=== PATIENT | female | born 1960 | race Caucasian/White ===

== ENCOUNTER → 2019-05-24 13:33 | Outpatient (CLI) | payer MEDICARE, SELFPAY ==
[2019-05-24 14:46] LABS: Chloride 106 mmol/L (98-107); Sodium 141 mmol/L (136-145)
[2019-05-24 14:47] LABS: Potassium 4.4 mmoL/L (3.5-5.1)
[2019-05-24 14:49] LABS: Alanine Aminotransferase 20 U/L (12-78); Alkaline Phosphatase 60 U/L (38-126); Anion Gap 12.4 mEq/L (5-15); Aspartate Amino Transferase 31 U/L (14-36); Bilirubin,Total 0.3 mg/dl (0.2-1.3); Blood Urea Nitrogen 13 mg/dl (7-17); Carbon Dioxide 27 mmol/L (22.0-30.0); Estimated Glomerular Filt Rate 73 ml/min (>60); GFR (African American) 89 ML/MIN (>60)
[2019-05-24 14:50] LABS: Albumin Level 4.2 g/dl (3.5-5.0); Albumin/Globulin Ratio 1.6 (1.1-1.8); Calcium 9.4 mg/dl (8.4-10.2); Chol/HDL Ratio 2.5 (1-3.5); Cholesterol 186 mg/dl (140-200); Globulin 2.6 g/dL (1.3-3.2); Glucose 93 mg/dl (74-100); HDL Cholesterol 74 mg/dl (40-60); Total Protein,Serum 6.8 g/dl (6.3-8.2); Triglycerides 63 mg/dl (30-150); VLDL Cholesterol 13 mg/dL (0-40)
[2019-05-24 15:01] LABS: Direct LDL Cholesterol 86.65 mg/dL (100-129)
[2019-05-24 15:09] LABS: T4 (Thyroxine) 10.4 ug/dl (5.53-11.0)
[2019-05-24 15:20] LABS: Thyroid Stimulating Hormone 2.47 uIU/mL (0.465-4.68)
[2019-05-24 15:53] LABS: Basophils % 0.5 % (0.1-2.0); Eosinophils # 0.1 K/mm3 (0.0-0.4); Eosinophils % 1.4 % (0.1-12.0); Hematocrit 40.7 % (37.0-47.0); Hemoglobin 13.2 g/dL (12.2-16.2); Lymphocytes # 1.2 K/mm3 (0.7-4.5); Lymphocytes % 24.9 % (10-50); Mean Corpuscular HGB Conc 32.4 g/dL (31.8-35.4); Mean Corpuscular Hemoglobin 30.5 pg (27.0-31.2); Mean Corpuscular Volume 94.2 fl (81-99); Mean Platelet Volume 8.5 fl (7.4-10.4); Monocytes # 0.3 K/mm3 (0.1-1.0); Monocytes % 5.1 % (1.7-9.3); Neutrophils # 3.4 K/mm3 (1.8-7.8); Neutrophils % 68.1 % (37.0-80.0); Platelet Count 238 K/mm3 (142-424); Red Blood Count 4.32 M/mm3 (4.20-5.40); White Blood Count 4.9 K/mm3 (4.8-10.8)
== END ==
PROVIDERS: Visit Provider Nurse Practitioner Family
DX: I10 Essential (primary) hypertension (principal); E78.5 Hyperlipidemia, unspecified; E55.9 Vitamin D deficiency, unspecified
CPT/HCPCS: 80053; 80061; 82652; 84436; 84443; 85025

== ENCOUNTER 2019-05-30 07:29 | Outpatient (RCR) | payer MEDICAID, SELFPAY ==
--- NOTE | 2019-05-30 08:37 | HMH.PTOPEV ---
PT Outpatient Evaluation Rehab PT Outpatient Evaluation Start: 05/30/19 08:05 Freq: Status: Active Protocol: Document 05/30/19 08:05 VALERIAOG (Rec: 05/30/19 08:37 LETY [id number]) Electronically Signed By Rhett Bates, PT 05/30/19 08:05 Outpatient Therapy Subjective History Subjective History This is the initial Physical Therapy evaluation fro Lulu Sahu. Pt reports to PT for c /o pain in thoracic to Lumbar area. Pt reports back pain on and off for years but states pain increased to chronic and constant ~ 5 years ago w/ insidious onset. Pt Chief Complaint Pain Symptom Type Ache Symptoms Relieved By Brace/Support Symptoms Aggravated By Sitting,Standing,Bending/ Stooping,Physical Activity, Walking Current Functional Limitations Housework,Standing,Recreation Activity,Walking Symptom Description Constant but Variable Level of pain today (0-10) 8 Pain scale - at its best (0-10) 9 Pain scale - at its worst (0-10) 9 Lumbopelvic Eval Palapation tenderness bilateral thoracic spinal tenderness Yes lumbar spinal tenderness Yes paraspinal tenderness Yes Lumbar/Sacral Palpation Overall Comment hypersensitivity to LT Range of Motion Lumbar Spine Active Flexion Range of 45 Motion (degrees) Lumbar Spine Active Extension Range of 10 Motion (degrees) Left Lumbar Spine Lateral Flexion Active 15 Range of Motion (degrees) Right Lumbar Spine Lateral Flexion 15 Active Range of Motion (degrees) Lumbar Spine ROM Limitations Muscle Tone DTR Rt Patellar 2+ Lt Patellar 2+ Special Tests Lumbar Spine Screen Positive Forward Bending Test- Standing Positive Left,Positive Right Sciatic Nerve Tension Test Negative Left,Negative Right Reverse Sciatic Nerve Tension Test Negative Left,Negative Right Hip 90-90 Straight Leg Raise Test Negative Left,Negative Right Unilateral Straight Leg Raise (Lasegue) Negative Left,Negative Right Test Bilateral Straight Leg Raise Test Negative Crossed Straight Leg Raise Test Negative Left,Negative Right Outpatient Therapy Assessment Impairments Problems/Impairmments Palpation Tenderness,Impaired Range of Motion,Impaired Walking,Impaired Standing, Impaired Sitting,Impaired Shower/Bathing,Impaired
== END 2019-05-30 07:35 | disposition home or self-care (01) ==
LOC: PT 07:29
PROVIDERS: PCP Nurse Practitioner Family; Visit Provider Nurse Practitioner Family
DX: M54.5 Low back pain (principal); M54.6 Pain in thoracic spine
CPT/HCPCS: 97110; 97163

== ENCOUNTER → 2019-08-01 06:39 | Outpatient (CLI) | payer MEDICAID, SELFPAY ==
--- NOTE | 2019-08-01 06:41 | CA_ITS ---
APPROVED REPORT EXAM: Comprehensive 2D, Doppler, and color-flow Echocardiogram Water And Fire Technician: Donna Douglas RDCS Ht: 5 ft 3 in Wt: 211lbs BSA: 1.98 BP: 134/77 mmHg Indications: CAD,SUBSATNCE ABUSE HISTORY,H/O CVA,HTN,HLP 2D Dimensions LVOT 2.20 cm (M/F) 1.5-2.5 M-Mode Dimensions RVDd 1.68 cm (0.9-2.6) LVDd 4.90 cm (3.5-5.7) LVDs 2.79 cm (3.5-5.7) IVSd 0.82 cm (0.6-1.1) PWd 0.86 cm (0.6-1.1) EF (Teich) 74.00% FS 43.10% EDV (Teich) 112.80 mL ESV (Teich) 29.30 mL LV Diastology E/A Ratio 0.88 Mitral Valve MV A Velocity 76.00 (40-130 cm/s) Left Ventricle Left atrium is mildly enlarged, left ventricle is normal size, mild concentric left ventricular hypertrophy, visually estimated ejection fraction 55% with no regional wall motion abnormality, diastolic parameters are inconclusive. Right Ventricle Right atrium and right ventricular normal size and contractility. Aortic Valve Aortic valve is minimally thickened and fibrosed, there is no aortic stenosis aortic insufficiency. Mitral Valve Mitral valve is grossly normal, there is mild mitral regurgitation. Tricuspid Valve Tricuspid valve is grossly normal, there is mild tricuspid regurgitation, tricuspid regurgitation jet velocity is inadequate for calculation of the right ventricular systolic pressure. Pulmonic Valve Pulmonic valve is poorly visualized. Great Vessels Aortic root is normal size. Conclusion 1. Mildly enlarged left atrium, normal left ventricular size, visually estimated ejection fraction 55% with no regional wall motion abnormality, diastolic parameters are inconclusive. 2. Mild mitral and tricuspid regurgitation. 3. No significant pericardial effusion noted. Electronically signed by : Matt Zurita, 08/01/2019 19:51:20
--- NOTE | 2019-08-01 06:41 | NM_ITS ---
APPROVED REPORT Exam: Nuclear Stress Test Indication: chest pain..short of breath Patient Location: Outpatient Stress Tech: Odilia Mcallister ACOSTA Tech:Nandini Brewer HERMILA RT(R)(N) Ht: 5 ft 4 in Wt: 215 lbs Bra Size: 3x HR: 64 bpm BP: 140/53 mmHg BSA: 2.02 m2 BMI: 36.9 History: chest pain..short of breath Procedure: Patient received a 0.4 mg of intravenous Lexiscan, resting heart rate 64 bpm, resting blood pressure 140/53 mmHg, with Lexiscan maximum heart rate achived was 103 bpm which is Less than 85 % of the maximum predicted heart rate and blood pressure was 125/54 mmHg. With Lexiscan, patient denied any complaint of chest pain. Electrocardiogram Resting electrocardiogram shows sinus rhythm, with Lexiscan there is less than 1.[address] segment depression noted from the baseline EKG. The EKG portion of the Lexiscan Myoview is nondiagnostic. Cardiac Stress and Resting SPECT Images: Cardiac Stress and Resting SPECT images were obtained using technetium 99m Myoview 30.5 mCi stress and 10.84 mCi at rest. Gated SPECT for analysis of segmental wall motion and calculation of the ejection fraction also done. Cardiac stress and resting SPECT images show uniform myocardial activity without segmental perfusion abnormality, computer derived ejection fraction is 61% with no regional wall motion abnormality, right ventricle is normal size and contractility. Conclusion: 1. The EKG portion of the Lexiscan Myoview is nondiagnostic. 2. No scintigraphic evidence of reversible ischemia seen, computer derived ejection fraction is 61% with no regional wall motion abnormality, right ventricle is normal size and contractility 3. Normal Lexiscan Myoview study. Electronically signed by : Matt Zurita, 08/01/2019 20:28:49
--- NOTE | 2019-08-01 06:41 | CA_ITS ---
APPROVED REPORT Exam: Pharmacologic Technologist: Odilia Mcallister Ht: 5 ft 4 in Wt: 215 lbs BSA: 2.02 m2 HR: 64 bpm BP: 140/53 mmHg Indications: Dyspnea Medical History Medications: Atenolol,,,,, Vitamin D3,,,,, Atorvastatin,,,,, HCTZ,,,,, Citalopram,,,,, CloPIdogrel,,,,, Famotidine,,,,, PaROXETINE,,,,, DOcusate,,,,, Levalbuterol,,,,, Lidocaine patch,,,,, Stress Test Details Test: LEXISCAN HR Resting HR: 79 bpm Max Heart Rate (APMHR): 161 bpm Max HR Achieved: 117 bpm Target HR (85% APMHR): 136 bpm % of APMHR: 72 Recovery HR: 84 bpm BP Resting BP: 140.0/53.0 mmHg Max BP: 140.0/53.0 mmHg Recovery BP: 133.0/57.0 mmHg ECG Clinical Exercise duration: 04:01 min Highest Stage Achieved: Stress ECG Conclusion Resting ECG: Sinus rhythm Lexiscan portion completed. Patient complained of being nauseous during peak infusion. Symptoms: Nauseous feeling during peak infusion. Resolved in recovery. No chest pain. No shortness of breath. Arrhythmias/Ectopy: No ectopy. ST-T Changes: Less than 1.[address] depression. Conclusion: Images to follow. Test Summary REST . . . . . . . Resting REST 07:35 . . 79 . 140/ 53 . . Stage 1 . . . . . . . Myoview Injected Stage 1 01:00 . . 100 . . . . Stage 2 01:00 . . 106 . . . . Stage 3 01:00 . . 102 . 125/ 54 . . Stage 4 01:00 . . 91 . 120/ 69 . . Stage 4 01:01 . . 91 . 120/ 69 . Stop exercise at 04:01 RECOVERY 01:00 . . 96 . 125/ 77 . . RECOVERY 02:00 . . 92 . 125/ 77 . . RECOVERY 03:00 . . 91 . 118/ 68 . . RECOVERY 04:00 . . 86 . 118/ 68 . . RECOVERY 04:24 . . 85 . 133/ 57 . . Electronically signed by : Matt Zurita, 08/01/2019 20:26:36
--- NOTE | 2019-08-01 06:41 | XR_ITS ---
PROCEDURE: XR CHEST 2V CLINICAL HISTORY: chest pain COMPARISON: CXR CHEST(2 VIEWS-NOT PORTABLE) from 08/26/2015 [facility] PERF SPECT REST STR from 08/01/2019 FINDINGS: The cardiomediastinal silhouette and pulmonary vascularity are within normal limits. There is a small hiatal hernia. There is evidence of old granulomatous disease. Mild degenerative changes of the thoracic spine. IMPRESSION: Small hiatal hernia. No acute finding Dictated by: Raman Silva MD 08/01/2019 13:55 Electronically signed by Raman Silva MD in [facility] 08/01/2019 13:55
--- NOTE | 2019-08-01 13:14 | HMH.ITSHM ---
Current Home Medications as stated by this patient Lulu Sahu or fundraising sale representative. [] paroxetine lisinopril hctz famoidine clopidogrel atenolol
== END ==
PROVIDERS: PCP Nurse Practitioner Family; Visit Provider Physician Assistant
DX: E78.5 Hyperlipidemia, unspecified (principal); F17.200 Nicotine dependence, unspecified, uncomplicated; F19.10 Other psychoactive substance abuse, uncomplicated; I10 Essential (primary) hypertension; I25.118 Atherosclerotic heart disease of native coronary artery with other forms of angina pectoris; M51.37 Other intervertebral disc degeneration, lumbosacral region; R06.00 Dyspnea, unspecified; R07.89 Other chest pain; Z95.5 Presence of coronary angioplasty implant and graft
CPT/HCPCS: 71046; 78452; 93017; 93306; A9502; J2785

== ENCOUNTER → 2019-08-16 13:26 | Outpatient (CLI) | payer MEDICAID, SELFPAY ==
[2019-08-16 14:51] LABS: Anion Gap 10.4 mEq/L (5-15); Blood Urea Nitrogen 15 mg/dl (7-17); Calcium 9.6 mg/dl (8.4-10.2); Carbon Dioxide 30 mmol/L (22.0-30.0); Chloride 99 mmol/L (98-107); Estimated Glomerular Filt Rate 86 ml/min (>60); GFR (African American) 104 ML/MIN (>60); Glucose 93 mg/dl (74-100); Potassium 4.4 mmoL/L (3.5-5.1); Sodium 135 mmol/L (136-145)
== END ==
PROVIDERS: Visit Provider Internal Medicine Cardiovascular Disease
DX: E78.5 Hyperlipidemia, unspecified (principal); F17.200 Nicotine dependence, unspecified, uncomplicated; F19.10 Other psychoactive substance abuse, uncomplicated; I10 Essential (primary) hypertension; I25.10 Atherosclerotic heart disease of native coronary artery without angina pectoris; R06.00 Dyspnea, unspecified; R07.9 Chest pain, unspecified; Z95.5 Presence of coronary angioplasty implant and graft
CPT/HCPCS: 36415; 80048

== ENCOUNTER 2019-08-18 08:29 | Day surgery (SDC) | payer MEDICAID, SELFPAY ==
[2019-08-18] VITALS (11 sets, daily range): BP systolic 103–163; BP diastolic 66–101; PULSE 54–72; RESP 16–18; O2SAT 93–98; BMI 37.5
[2019-08-18 09:52] LABS: Chloride 104 mmol/L (98-107); Potassium 3.8 mmoL/L (3.5-5.1); Sodium 138 mmol/L (136-145)
[2019-08-18 09:53] LABS: Basophils % 0.5 % (0.1-2.0); Eosinophils # 0.1 K/mm3 (0.0-0.4); Eosinophils % 1.3 % (0.1-12.0); Hematocrit 37.3 % (37.0-47.0); Hemoglobin 12.4 g/dL (12.2-16.2); Lymphocytes # 1.4 K/mm3 (0.7-4.5); Lymphocytes % 30.5 % (10-50); Mean Corpuscular HGB Conc 33.3 g/dL (31.8-35.4); Mean Corpuscular Hemoglobin 30.4 pg (27.0-31.2); Mean Corpuscular Volume 91.2 fl (81-99); Mean Platelet Volume 6.9 fl (7.4-10.4); Monocytes # 0.3 K/mm3 (0.1-1.0); Monocytes % 6.9 % (1.7-9.3); Neutrophils # 2.7 K/mm3 (1.8-7.8); Neutrophils % 60.8 % (37.0-80.0); Platelet Count 181 K/mm3 (142-424); Red Blood Count 4.09 M/mm3 (4.20-5.40); Red Cell Distribution Width 12.6 % (11.5-17.5); White Blood Count 4.5 K/mm3 (4.8-10.8)
[2019-08-18 09:55] LABS: Anion Gap 6.8 mEq/L (5-15); Blood Urea Nitrogen 18 mg/dl (7-17); Calcium 8.7 mg/dl (8.4-10.2); Carbon Dioxide 31 mmol/L (22.0-30.0); Creatinine Clearance Estimated 102 mL/min (50-200); Estimated Glomerular Filt Rate 64 ml/min (>60); GFR (African American) 78 ML/MIN (>60); Glucose 93 mg/dl (74-100)
--- NOTE | 2019-08-18 12:00 | IR_ITS ---
APPROVED REPORT PROCEDURES Left heart catheterization Left ventriculogram Selective coronary angiogram INDICATION Known coronary artery disease, Recalcitrant angina pectoris SCAI INDICATION Recalcitrant angina pectoris Informed consent was obtained prior to the procedure. COMPLICATIONS None Estimated Blood Loss: less than 10ml TECHNIQUE One percent lidocaine used to anesthetize the right anterior aspect of the wrist. The right radial artery was accessed via the Seldinger technique. A 6 [place] sheath was placed in the right radial artery. 2.5 mg of verapamil, 800 mcg of nitroglycerin, 1mg Lidocaine and 5000 U Heparin were given through the arterial sheath. The ultra catheter was also used to perform left heart catheterization, left ventriculogram and selective coronary angiogram. At the end of the procedure the sheath was removed good hemostasis was achieved using Traclet band, patient was transferred to the postop holding area in stable condition. ANGIOGRAPHIC RESULTS The left main artery Normal The left anterior descending artery Is proximally normal and has 10% stenoses through the highly tortuous mid LAD segment The circumflex artery Dominant tortuous and normal The right coronary artery Nondominant normal The WU ventriculogram reveals Normal 65% The left ventricular end-diastolic pressure 10 mmHg IMPRESSION Widely patent tortuous coronary arteries with [id number] mild coronary artery disease Normal ejection fraction Normal left ventricular end-diastolic pressure PLAN 1. Medical management Electronically signed by : Lawson Jain, 08/18/2019 10:47:36
== END 2019-08-18 13:43 | disposition home or self-care (01) ==
LOC: CATHLAB 08:31
PROVIDERS: PCP Nurse Practitioner Family; Visit Provider Internal Medicine
DX: E78.5 Hyperlipidemia, unspecified (principal); I10 Essential (primary) hypertension; R06.00 Dyspnea, unspecified; Z95.5 Presence of coronary angioplasty implant and graft; I25.110 Atherosclerotic heart disease of native coronary artery with unstable angina pectoris; Z88.0 Allergy status to penicillin; Z72.0 Tobacco use; Z79.51 Long term (current) use of inhaled steroids; Z79.899 Other long term (current) drug therapy
CPT/HCPCS: 80048; 85025; 93458; 99152; C1769; J1644; Q9967

== ENCOUNTER 2019-09-14 16:00 | Outpatient (RCR) | payer MEDICARE, MEDICAID, SELFPAY ==
--- NOTE | 2019-09-07 17:35 | HMH.PTOPEV ---
PT Outpatient Evaluation Rehab PT Outpatient Evaluation Start: 09/07/19 17:19 Freq: Status: Active Protocol: Document 09/07/19 17:19 CIRA (Rec: 09/07/19 17:35 CIRA [id number]) Electronically Signed By Ron Gill, PT 09/07/19 17:19 Outpatient Therapy Subjective History Subjective History Patient is a 58 year old female presenting to outpatient PT with reports of LLE weakness resulting in approx 3-4 falls over the past 6 months. Pt reports that she had a TIA and LLE weakness /giving out has progressively gotten worse, though she had weakness and balance issues before. Pt has no complaints of pain upon evaluation. Comorbidities include lumbar DDD, HTN, HL and hx of gallstones. Chief Complaint Gives out/Unstable Symptom Type Other Symptoms Relieved By Rest/Positioning Symptoms Aggravated By Standing,Bending/Stooping, Physical Activity,Walking Prior Functional Limitations Standing,Squatting,Walking, Stairs,Balance Current Functional Limitations Standing,Squatting,Walking, Stairs,Balance Balance Eval Subjective Hx of Complaint Comment My left leg always gives out on me and makes me fall. Prior Functional Limitations Prior Functional Pound Level All standing and ambulatory activities. Current Functional Limitations Comment All standing and ambulatory activities. Hx of Falls Hx Falls Yes Number in last 6 months 4 Gait/Posture Asssessment General Gait Observation No Deviations/Normal Assistive Devices None / NA Level of Transfer Assist Independent Hip Observation in Gait Swing No Deviation Hip Observation in Gait Stance No Deviation Ankle/Foot Observation in Gait Swing No Deviation Ankle/Foot Observation in Gait Stance No Deviation Body Alignment Posture Thoracic Kyphosis Timed Up and Go Test 1. Is the Timed Up and Go test result > yes or = to 12 seconds? [place] Feet Together/Eyes open/Stable Surface pass Feet Together/Eyes Closed/Stable Surface fail Feet Together/Eyes open/Unstable Surface pass Feet Together/Eyes Closed/Unstable fail Surface Tinetti Sitting Balance Sitting Balance Steady, safe
== END 2019-09-14 16:05 | disposition home or self-care (01) ==
LOC: PT 16:00
PROVIDERS: PCP Nurse Practitioner Family; Visit Provider Nurse Practitioner Family
DX: R29.898 Other symptoms and signs involving the musculoskeletal system (principal)
CPT/HCPCS: 97163

== ENCOUNTER → 2019-11-16 14:14 | Outpatient (CLI) | payer MEDICARE, BC, SELFPAY ==
[2019-11-16 15:45] LABS: Coronavirus 19 IgG Antibody Negative (Negative); Coronavirus 19 IgM Antibody Negative (Negative)
== END ==
PROVIDERS: Visit Provider Surgery
DX: Z01.89 Encounter for other specified special examinations (principal)
CPT/HCPCS: 36415; 86328

== ENCOUNTER → 2020-01-24 13:27 | Outpatient (CLI) | payer MEDICARE, BC, SELFPAY ==
[2020-01-24 15:42] LABS: Coronavirus 19 IgG Antibody Negative (Negative); Coronavirus 19 IgM Antibody Negative (Negative)
== END ==
PROVIDERS: Visit Provider Surgery
DX: Z01.818 Encounter for other preprocedural examination (principal); L72.3 Sebaceous cyst
CPT/HCPCS: 36415; 86328

== ENCOUNTER 2020-01-26 09:45 | Day surgery (SDC) | payer MEDICARE, BC, SELFPAY ==
[2020-01-24 13:22] VITALS: BMI 38.6
[2020-01-26 12:58] VITALS: BP 134/88; PULSE 80; RESP 20; TEMP 36.7; O2SAT 100
--- NOTE | 2020-01-26 14:34 | HMH.OPNOTE ---
Date of procedure: 01/26/20 Pre-op Diagnosis:: Right upper back sebaceous cyst (1.5 cm) Post-op Diagnosis:: Same Procedure performed:: Excision of 1.5 cm right upper back sebaceous cyst Surgeon:: Josiah May MD Anesthesia: local Estimated blood loss (mL): 5 Operative findings:: Cyst excised in toto and passed off for pathologic evaluation Operative note:: After informed consent was obtained the patient was taken to the procedure room. She was maintained in a seated position. Her right upper back was prepped and draped in a sterile fashion. After infiltration local anesthetic an elliptical incision was made around the lesion. The deep subcutaneous tissue was sharply excised. The lesion was excised in toto and passed off for pathologic evaluation. Electrocautery was utilized to achieve hemostasis. The skin was then reapproximated with 3-0 nylon. Dressings were applied and the patient was discharged in stable condition. Condition: stable Disposition: no change Specimens:: Right upper back cyst Complications:: No immediate
[2020-01-26 14:36] VITALS: BP 131/86; PULSE 83; RESP 18; TEMP 36.1; O2SAT 97
--- NOTE | 2020-01-26 15:40 | SUR.OPER ---
Count-before and after procedure as verified by [facility] and Minnie Yeager RN 5 laps 1 bovie 1 blade 1 suture 1 hypo count complete and correct, notified at [id number]
--- NOTE | 2020-01-26 15:45 | SUR.OPER ---
dressing: antibiotic ointment, folded 4x4s and tegaderm
== END 2020-01-26 14:59 | disposition home or self-care (01) ==
PROVIDERS: PCP Nurse Practitioner Family; Visit Provider Surgery
PROC: (CPT 21920; principal; 2020-01-26 11:30)
DX: I25.10 Atherosclerotic heart disease of native coronary artery without angina pectoris (principal); I82.409 Acute embolism and thrombosis of unspecified deep veins of unspecified lower extremity; Z86.73 Personal history of transient ischemic attack (TIA), and cerebral infarction without residual deficits; E78.5 Hyperlipidemia, unspecified; I10 Essential (primary) hypertension; I25.2 Old myocardial infarction; Z79.899 Other long term (current) drug therapy; Z72.0 Tobacco use; F12.90 Cannabis use, unspecified, uncomplicated; Z82.49 Family history of ischemic heart disease and other diseases of the circulatory system
CPT/HCPCS: 21920; 88304

== ENCOUNTER 2020-09-27 18:15 | Emergency (ER) | payer MEDICARE, BC, SELFPAY ==
[2020-09-27 18:16] VITALS: BP 141/89; PULSE 81; RESP 16; TEMP 36.2; O2SAT 98; BMI 38.9
--- NOTE | 2020-09-27 18:39 | HMH.EDGENADL ---
ED Disposition Clinical Impression: Drug overdose Qualifiers: Encounter type: initial encounter Injury intent: accidental or unintentional Qualified Code(s): T50.901A - Poisoning by unspecified drugs, medicaments and biological substances, accidental (unintentional), initial encounter Disposition: Still a Patient Condition on Discharge: Good Referrals: Lewis Corral APRN [Primary Care Provider] - Time of Disposition: 19:00 - Critical Care Critical Care Time: No Attestation: On 09/27/20, the high probability of a clinically significant, sudden or life threatening deterioration of the following system(s) required my full and direct attention, intervention and personal management. The time I documented below is in addition to time spent performing reported procedures but includes the following listed in this critical care notation. Medical Decision Making - Medical Records Medical records reviewed: Yes: I reviewed the patient's medical records. - Jean Paul Inquiry Pt receiving controlled substance: No Vital Signs: 09/27/20 18:16 Temperature 97.1 F L Temperature Source Oral Pulse Rate [Radial] 81 Respiratory Rate 16 Blood Pressure [Right Radial Artery] 141/89 H Blood Pressure Mean [Right Radial Artery] 106 Blood Pressure Position [Right Radial Artery] Sitting 02 Sat by Pulse Oximetry 98 Oxygen Delivery Method Room Air Orders (Tests/Meds): ED MEDICATIONS Discontinued Medications Generic Name Dose Route Start Last Admin Trade Name Jarad PRN Reason Stop Dose Admin Naloxone HCl 1 mg 09/27/20 19:00 09/27/20 19:06 Naloxone 2mg/2ml Syringe IV 09/27/20 19:01 1 mg ONCE ONE Administration Medical Decision Narrative: Evaluate for overdose. Patient received a total of 6 mg Narcan intranasal prior to arrival. Last dose was roughly 1815. Patient is in no acute distress at this time. She is a little somnolent but able answer questions without difficulty. We will hold off on additional treatment right now. Patient will need to be monitored to ensure no additional overdose occurs. Patient to be signed out to oncoming physician at shift change. General Adult HPI - General Chief complaint: Overdose Stated complaint: overdose Time Seen by Provider: 09/27/20 18:30 Mode of Arrival: EMS Limitations: No Limitations Description of Symptoms (Recalled from ER Triage Doc. by RN): to ed per squad for overdose. pt with hx of drug abuse and has been sober x 5 years. snorted heroin today a little bit pt states she has been under alot of stress lately. pt was found by family, she was given 4 mg nasal. squad states pt was still drowsey when they got to scene and gave another 2 mg nasal. pt vomiting since given narcan. pt admits to ed drowsey slow to answer questions. pt oriented x 3. - History of Present Illness HPI narrative: 59yo F presents via EMS after an overdose. Patient received 4 of Narcan prior to EMS arrival and EMS provided additional 2 of Narcan intranasal. Patient had projectile vomiting after receiving the additional 2 of Narcan. She reports using just a little bit of heroin. States she uses drugs quite often. Denies any chest pain or shortness of breath at this time. - Related Data Home Medications Medication Instructions Recorded Confirmed Levalbuterol Tartrate 2 inh INHALATION Q6H 11/15/19 02/08/20 [Levalbuterol Tartrate Hfa] Atorvastatin Calcium [Lipitor 10mg See Rx Instructions .ROUTE .COMPLEX 01/26/20 02/08/20 Tab] Clopidogrel Bisulfate [Plavix] See Rx Instructions .ROUTE .COMPLEX 01/26/20 02/08/20 Docusate Sodium See Rx Instructions .ROUTE .COMPLEX 01/26/20 02/08/20 atenoloL [Atenolol 50mg Tab] See Rx Instructions .ROUTE .COMPLEX 01/26/20 02/08/20 hydroCHLOROthiazide See Rx Instructions .ROUTE .COMPLEX 01/26/20 02/08/20 [Hydrochlorothiazide 12.5mg Tab] lisinopriL [Lisinopril 5mg See Rx Instructions .ROUTE .COMPLEX 01/26/20 02/08/20 Tablet] Previous Rx's Medi
--- NOTE | 2020-09-27 20:16 | XR_ITS ---
PROCEDURE INFORMATION: Exam: XR Chest Exam date and time: 09/27/2020 8:16 PM Age: 59 years old Clinical indication: Patient HX: No chest complaints, overdose; Additional info: Od TECHNIQUE: Imaging protocol: XR of the chest. Portable AP exam 8:30 p.m. Views: 1 view. COMPARISON: CR XR CHEST 2V 08/01/2019 9:57 AM FINDINGS: Lungs: No acute pulmonary findings. No pulmonary consolidation. Lung volumes within normal limits. Pleural spaces: Unremarkable. No significant pleural effusion. No pneumothorax. Heart/Mediastinum: Cardiac silhouette appears borderline enlarged, more prominent compared with 2019, but is accentuated by portable AP technique. Small hiatal hernia appears slightly more prominent compared with the prior exam from 08/01/2019. Bones/joints: Chronic spinal degenerative changes, bilateral acromioclavicular arthritis. Other findings: Overlying school lunch monitor electrodes. IMPRESSION: 1. No acute findings. 2. The patient's hiatal hernia appears slightly enlarged compared with 2020. 3. Borderline cardiomegaly. 4. No pulmonary consolidation.
[2020-09-27 21:30] VITALS: BP 151/86; PULSE 73; RESP 14; O2SAT 97
[2020-09-27 21:55] LABS: Microscopic, Urine URINE MICROSCOPIC (MICROSCOPIC)
[2020-09-27 22:11] LABS: Appearance,Urine CLEAR (Clear); Bilirubin,Urine Negative (Negative); Blood, Urine 2+ (Negative); Color,Urine YELLOW (Yellow); Glucose,Urine (UA) Negative (Negative); Ketones,Urine Negative (Negative); Leukocyte Esterase,Urine 2+ (Negative); Nitrate,Urine Negative (Negative); Protein,Urine Negative (Negative); Urobilinogen,Urine 0.2 EU/dl (0.2)
[2020-09-27 22:22] LABS: Benzodiazepines Screen,Urine Negative ng/ml (<200)
[2020-09-27 22:23] LABS: Barbiturates Screen,Urine Negative ng/ml (<200)
[2020-09-27 22:24] LABS: Cannabinoid Screen,Urine Negative ng/ml (<50)
[2020-09-27 22:25] LABS: Cocaine Screen,Urine Positive ng/ml (<300); Methadone Screen,Urine Negative ng/ml (<300)
[2020-09-27 22:25] LABS: Basophils % 0.5 % (0.1-2.0); Eosinophils # 0.1 K/mm3 (0.0-0.4); Eosinophils % 0.8 % (0.1-12.0); Hematocrit 39.8 % (37.0-47.0); Hemoglobin 13.5 g/dL (12.2-16.2); Lymphocytes # 0.9 K/mm3 (0.7-4.5); Mean Corpuscular HGB Conc 33.9 g/dL (31.8-35.4); Mean Corpuscular Hemoglobin 30.3 pg (27.0-31.2); Mean Corpuscular Volume 89.1 fl (81-99); Mean Platelet Volume 8.3 fl (7.4-10.4); Monocytes # 0.5 K/mm3 (0.1-1.0); Monocytes % 5.7 % (1.7-9.3); Neutrophils # 6.7 K/mm3 (1.8-7.8); Platelet Count 248 K/mm3 (142-424); Red Blood Count 4.47 M/mm3 (4.20-5.40); Red Cell Distribution Width 13.5 % (11.5-17.5); White Blood Count 8.2 K/mm3 (4.8-10.8)
[2020-09-27 22:26] LABS: Phencyclidine Screen,Urine Negative ng/ml (<25)
[2020-09-27 22:27] LABS: Opiate Screen,Urine Negative ng/ml (<300)
[2020-09-27 22:31] LABS: Chloride 107 mmol/L (98-107); Sodium 141 mmol/L (136-145)
[2020-09-27 22:32] LABS: Bacteria,Urine 3+ /lpf
[2020-09-27 22:33] LABS: Alanine Aminotransferase 18 U/L (12-78); Aspartate Amino Transferase 29 U/L (14-36); Blood Urea Nitrogen 13 mg/dl (7-17); Creatinine Clearance Estimated 105 mL/min (50-200); Estimated Glomerular Filt Rate 64 ml/min (>60); GFR (African American) 77 ML/MIN (>60)
[2020-09-27 22:34] LABS: Albumin Level 4.5 g/dl (3.5-5.0); Albumin/Globulin Ratio 1.5 (1.1-1.8); Alkaline Phosphatase 100 U/L (38-126); Bilirubin,Total 0.5 mg/dl (0.2-1.3); Carbon Dioxide 26 mmol/L (22.0-30.0); Globulin 3.1 g/dL (1.3-3.2); Glucose 124 mg/dl (74-100); Lipase 89 U/L (23-300); Total Protein,Serum 7.6 g/dl (6.3-8.2)
[2020-09-27 22:47] LABS: Troponin I < 0.01 ng/ml (0.00-0.034)
[2020-09-27 23:00] VITALS: BP 121/73; RESP 14
[2020-09-27 23:24] VITALS: BP 121/73; PULSE 72; RESP 17; TEMP 36.7; O2SAT 100
== END 2020-09-27 23:37 | disposition home or self-care (01) ==
PROVIDERS: Emergency Provider Emergency Medicine; PCP Nurse Practitioner Family
DX: T40.1X1A Poisoning by heroin, accidental (unintentional), initial encounter (principal); Y92.019 Unspecified place in single-family (private) house as the place of occurrence of the external cause; I25.2 Old myocardial infarction; I25.10 Atherosclerotic heart disease of native coronary artery without angina pectoris; N30.00 Acute cystitis without hematuria; B96.20 Unspecified Escherichia coli [E. coli] as the cause of diseases classified elsewhere; E78.5 Hyperlipidemia, unspecified; I10 Essential (primary) hypertension; Z86.73 Personal history of transient ischemic attack (TIA), and cerebral infarction without residual deficits; F17.210 Nicotine dependence, cigarettes, uncomplicated
CPT/HCPCS: 96374; 71045; 80053; 80305; 81001; 83690; 84484; 85025; 87086; 87088; 87186; 96375; 96376; 99282; J2310; J2405

== ENCOUNTER → 2020-11-28 14:02 | Outpatient (CLI) | payer MEDICARE, BC, SELFPAY ==
[2020-11-28 14:18] LABS: Basophils % 0.5 % (0.1-2.0); Eosinophils % 0.7 % (0.1-12.0); Hematocrit 41.3 % (37.0-47.0); Hemoglobin 13.4 g/dL (12.2-16.2); Lymphocytes # 1.3 K/mm3 (0.7-4.5); Lymphocytes % 21.2 % (10-50); Mean Corpuscular HGB Conc 32.5 g/dL (31.8-35.4); Mean Corpuscular Hemoglobin 30.7 pg (27.0-31.2); Mean Corpuscular Volume 94.4 fl (81-99); Mean Platelet Volume 8.8 fl (7.4-10.4); Monocytes # 0.3 K/mm3 (0.1-1.0); Monocytes % 4.9 % (1.7-9.3); Neutrophils # 4.4 K/mm3 (1.8-7.8); Neutrophils % 72.7 % (37.0-80.0); Platelet Count 281 K/mm3 (142-424); Red Blood Count 4.38 M/mm3 (4.20-5.40); Red Cell Distribution Width 13.9 % (11.5-17.5); White Blood Count 6.1 K/mm3 (4.8-10.8)
[2020-11-28 14:53] LABS: Amphetamine/Metha Screen,Urine Negative ng/ml (<1000); Barbiturates Screen,Urine Negative ng/ml (<200)
[2020-11-28 14:54] LABS: Benzodiazepines Screen,Urine Negative ng/ml (<200)
[2020-11-28 14:55] LABS: Cannabinoid Screen,Urine Negative ng/ml (<50); Cocaine Screen,Urine Negative ng/ml (<300)
[2020-11-28 14:56] LABS: Methadone Screen,Urine Negative ng/ml (<300)
[2020-11-28 14:57] LABS: Opiate Screen,Urine Negative ng/ml (<300); Phencyclidine Screen,Urine Negative ng/ml (<25)
[2020-11-28 15:19] LABS: Alanine Aminotransferase 16 U/L (12-78); Albumin Level 4.2 g/dl (3.5-5.0); Albumin/Globulin Ratio 1.4 (1.1-1.8); Alkaline Phosphatase 96 U/L (38-126); Aspartate Amino Transferase 33 U/L (14-36); Blood Urea Nitrogen 13 mg/dl (7-17); Calcium 9.4 mg/dl (8.4-10.2); Carbon Dioxide 29 mmol/L (22.0-30.0); Chloride 106 mmol/L (98-107); Chol/HDL Ratio 2.5 (1-3.5); Cholesterol 225 mg/dl (140-200); Estimated Glomerular Filt Rate 85 ml/min (>60); GFR (African American) 103 ML/MIN (>60); Globulin 2.9 g/dL (1.3-3.2); Glucose 86 mg/dl (74-100); HDL Cholesterol 91 mg/dl (40-60); Sodium 142 mmol/L (136-145); Total Protein,Serum 7.1 g/dl (6.3-8.2); Triglycerides 71 mg/dl (30-150); VLDL Cholesterol 14 mg/dL (0-40)
[2020-11-28 15:30] LABS: Direct LDL Cholesterol 105.77 mg/dL (100-129)
[2020-11-28 15:37] LABS: T4 (Thyroxine) 9.1 ug/dl (5.53-11.0)
[2020-11-28 15:50] LABS: Thyroid Stimulating Hormone 4.03 uIU/mL (0.465-4.68)
[2020-11-30 07:12] LABS: Hep A Ab, IgM Negative (Negative); Hep A Ab, Total Negative (Negative); Hep B Core Ab, Total Negative (Negative); Hep B Surface Ab, Qual Non Reactive (.)
== END ==
PROVIDERS: Visit Provider Nurse Practitioner Family
DX: B19.20 Unspecified viral hepatitis C without hepatic coma (principal); R06.00 Dyspnea, unspecified; I20.0 Unstable angina; T50.901A Poisoning by unspecified drugs, medicaments and biological substances, accidental (unintentional), initial encounter; Z11.4 Encounter for screening for human immunodeficiency virus [HIV]
CPT/HCPCS: 80053; 80061; 80305; 84436; 84443; 85025; 86704; 86706; 86708; 87522; 87902

== ENCOUNTER 2020-12-10 23:36 | Inpatient (IN) | payer MEDICARE, BC, SELFPAY ==
[2020-12-10 23:38] VITALS: BP 131/78; PULSE 78; RESP 17; TEMP 36.8; O2SAT 100; BMI 44.2
[2020-12-11] VITALS (10 sets, daily range): BP systolic 99–151; BP diastolic 55–96; PULSE 62–103; RESP 16–20; TEMP 36.6–37.4; O2SAT 95–100; BMI 40.3
--- NOTE | 2020-12-11 00:11 | CT_ITS ---
PROCEDURE INFORMATION: Exam: CT Abdomen And Pelvis With Contrast Exam date and time: 12/11/2020 12:11 AM Age: 60 years old Clinical indication: Abdominal pain; Localized; Left lower quadrant (llq); Prior surgery; Surgery type: Gallbladder TECHNIQUE: Imaging protocol: Computed tomography of the abdomen and pelvis with contrast. Radiation optimization: All CT scans at this facility use at least one of these dose optimization techniques: automated exposure control; mA and/or kV adjustment per patient size (includes targeted exams where dose is matched to clinical indication); or iterative reconstruction. Contrast material: ISOVUE; Contrast volume: 75 ml; Contrast route: IV; COMPARISON: CR XR CHEST PORTABLE 09/27/2020 8:29 PM FINDINGS: Lungs: No mass/infiltrate at either lung base. No pleural effusion. Liver: The liver is normal in size and attenuation. No intrahepatic biliary dilitation. Gallbladder and bile ducts: The gallbladder is surgically absent. No evidence of extrahepatic biliary dilatation. Pancreas: Normal. No ductal dilation. Spleen: Normal. No splenomegaly. Granulomatous calcifications within the spleen are noted. Adrenal glands: Normal. No mass. Kidneys and ureters: Normal. No hydronephrosis. Stomach and bowel: There is focal thickening of the proximal sigmoid colon. Infiltration of fat within the adjacent mesentery is identified. There is a small collection of gas along the mesenteric border of the sigmoid colon which could represent a small abscess. Overall appearance is compatible with diverticulitis. There are additional diverticula noted within the sigmoid colon, descending colon, transverse colon. colon. There is a large hiatal hernia noted above the gastroesophageal junction. Appendix: The appendix is poorly visualized on this examination. Intraperitoneal space: Unremarkable. No free air. No significant fluid collection. Vasculature: Unremarkable. No abdominal aortic aneurysm. Lymph nodes: Unremarkable. No enlarged lymph nodes. Urinary bladder: Unremarkable as visualized. Reproductive: Hysterectomy has been performed. Bones/joints: There are degenerative changes noted within the lumbar spine.No acute fracture. Soft tissues: Unremarkable. IMPRESSION: 1. Findings are compatible with a focus of diverticulitis and probably a small diverticular abscess noted at the junction of the descending colon and sigmoid colon. There is edema present within the adjacent mesentery associated with this process. 2. There is a large hiatal hernia above the gastroesophageal junction. 3. Cholecystectomy and hysterectomy has been performed.
--- NOTE | 2020-12-11 00:23 | HMH.EDNVD ---
ED Disposition Clinical Impression: Diverticulitis, Tobacco dependence syndrome Obesity Qualifiers: Obesity type: due to excess calories Obesity classification: adult class 3 (BMI >= 40) Serious obesity comorbidity presence: with serious comorbidity Body mass index: BMI 40.0-44.9 Qualified Code(s): E66.01 - Morbid (severe) obesity due to excess calories; Z68.41 - Body mass index [BMI] 40.0-44.9, adult UTI (urinary tract infection) Qualifiers: Urinary tract infection type: site unspecified Hematuria presence: without hematuria Qualified Code(s): N39.0 - Urinary tract infection, site not specified Disposition: Admitted As Inpatient Condition on Discharge: Good - Critical Care Critical Care Time: No Attestation: On 12/10/20, the high probability of a clinically significant, sudden or life threatening deterioration of the following system(s) required my full and direct attention, intervention and personal management. The time I documented below is in addition to time spent performing reported procedures but includes the following listed in this critical care notation. Medical Decision Making - Medical Records Medical records reviewed: Yes: I reviewed the patient's medical records. - Jean Paul Inquiry Pt receiving controlled substance: No Vital Signs: 12/10/20 23:38 12/11/20 00:12 12/11/20 00:33 Temperature 98.2 F Temperature Source Oral Pulse Rate 88 67 Pulse Rate [Right Radial] 78 Respiratory Rate 17 20 18 Blood Pressure 127/96 H 135/73 Blood Pressure [Right Arm] 131/78 Blood Pressure Mean 100 92 Blood Pressure Mean [Right Arm] 95 Blood Pressure Source [Right Arm] Automatic Cuff Blood Pressure Position [Right Arm] Supine 02 Sat by Pulse Oximetry 100 98 99 Oxygen Delivery Method Room Air 12/11/20 01:01 12/11/20 01:31 Temperature Temperature Source Pulse Rate 64 65 Pulse Rate [Right Radial] Respiratory Rate 18 18 Blood Pressure 151/76 H 133/70 Blood Pressure [Right Arm] Blood Pressure Mean 99 93 Blood Pressure Mean [Right Arm] Blood Pressure Source [Right Arm] Blood Pressure Position [Right Arm] 02 Sat by Pulse Oximetry 100 99 Oxygen Delivery Method - Lab Data Lab results reviewed: Yes: I reviewed the patient's lab results. Lab Results 12/11/20 00:33: WBC 10.3, RBC 4.73, Hgb 14.5, Hct 44.4, MCV 93.8, MCH 30.7, MCHC 32.8, RDW 12.8, Plt Count 300, MPV 7.2 L, Neut % (Auto) 83.3 H, Lymph % (Auto) 11.0, [place] % (Auto) 3.8, Eos % (Auto) 1.6, Baso % (Auto) 0.3, Neut # (Auto) 8.6 H, Lymph # (Auto) 1.1, [place] # (Auto) 0.4, Eos # (Auto) 0.2, Baso # (Auto) 0.0, ESR 60 H 12/11/20 00:33: Sodium 136, Potassium 3.9, Chloride 100, Carbon Dioxide 27, Anion Gap 12.9, BUN 6 L, Creatinine 0.60, Estimated Creat Clear 49, Estimated GFR 102, Est GFR ( Amer) 123, Glucose 123 H, Calcium 9.3, Total Bilirubin 1.1, AST 42 H, ALT 24, Alkaline Phosphatase 100, C-Reactive Protein 30.9 H, Total Protein 8.3 H, Albumin 4.5, Globulin 3.8 H, Albumin/Globulin Ratio 1.2, Amylase 68, Lipase 108, Procalcitonin 0.050 12/11/20 02:02: Urine Color Yellow, Urine Appearance Clear, Urine pH 6.0, Ur Specific [place] <= 1.005, Urine Protein Negative, Urine Glucose (UA) Negative, Urine Ketones Negative, Urine Blood 2+, Urine Nitrate Positive, Urine Bilirubin Negative, Urine Urobilinogen 0.2, Ur Leukocyte Esterase 1+ A, Urine RBC 3-5, Urine WBC 10-20, Urine Bacteria 3+ 12/11/20 02:13: SARS-CoV-2 (PCR) Not detected, Influenza A Untype (PCR) Not detected, Influenza Type B (PCR) Not detected 12/11/20 03:05: Lactate 0.8 Result diagrams: 12/11/20 00:33 12/11/20 00:33 Orders (Tests/Meds): ED MEDICATIONS Generic Name Dose Route Start Last Admin Trade Name Freq PRN Reason Stop Dose Admin Sodium Chloride 1,000 mls @ 999 mls/hr 12/11/20 00:15 12/11/20 00:46 Sod Chlor 0.9% 1000ml Bag IV 12/11/20 01:15 999 mls/hr .Q1H1M NADIYA Administration Levofloxacin/Dextrose 750 mg in 150 mls @ 100 mls/hr 12/11/20 03:0
[2020-12-11 00:43] LABS: Basophils % 0.3 % (0.1-2.0); Eosinophils # 0.2 K/mm3 (0.0-0.4); Eosinophils % 1.6 % (0.1-12.0); Hematocrit 44.4 % (37.0-47.0); Hemoglobin 14.5 g/dL (12.2-16.2); Lymphocytes # 1.1 K/mm3 (0.7-4.5); Mean Corpuscular HGB Conc 32.8 g/dL (31.8-35.4); Mean Corpuscular Hemoglobin 30.7 pg (27.0-31.2); Mean Corpuscular Volume 93.8 fl (81-99); Mean Platelet Volume 7.2 fl (7.4-10.4); Monocytes # 0.4 K/mm3 (0.1-1.0); Monocytes % 3.8 % (1.7-9.3); Neutrophils # 8.6 K/mm3 (1.8-7.8); Neutrophils % 83.3 % (37.0-80.0); Platelet Count 300 K/mm3 (142-424); Red Blood Count 4.73 M/mm3 (4.20-5.40); Red Cell Distribution Width 12.8 % (11.5-17.5); White Blood Count 10.3 K/mm3 (4.8-10.8)
[2020-12-11 00:50] LABS: Alanine Aminotransferase 24 U/L (12-78); Albumin Level 4.5 g/dl (3.5-5.0); Albumin/Globulin Ratio 1.2 (1.1-1.8); Alkaline Phosphatase 100 U/L (38-126); Aspartate Amino Transferase 42 U/L (14-36); Bilirubin,Total 1.1 mg/dl (0.2-1.3); Chloride 100 mmol/L (98-107); Globulin 3.8 g/dL (1.3-3.2); Lipase 108 U/L (23-300); Potassium 3.9 mmoL/L (3.5-5.1); Sodium 136 mmol/L (136-145); Total Protein,Serum 8.3 g/dl (6.3-8.2)
[2020-12-11 00:53] LABS: Amylase 68 U/L (30-110); Anion Gap 12.9 mEq/L (5-15); Blood Urea Nitrogen 6 mg/dl (7-17); Calcium 9.3 mg/dl (8.4-10.2); Carbon Dioxide 27 mmol/L (22.0-30.0); Creatinine Clearance Estimated 49 mL/min (50-200); Estimated Glomerular Filt Rate 102 ml/min (>60); GFR (African American) 123 ML/MIN (>60); Glucose 123 mg/dl (74-100)
[2020-12-11 00:56] LABS: C-Reactive Protein 30.9 mg/L (0-4)
[2020-12-11 01:25] LABS: Erythrocyte Sedimentation Rate 60 mm/hr (0-30)
[2020-12-11 02:07] LABS: Microscopic, Urine URINE MICROSCOPIC (MICROSCOPIC)
[2020-12-11 02:08] LABS: Appearance,Urine CLEAR (Clear); Bilirubin,Urine Negative (Negative); Blood, Urine 2+ (Negative); Color,Urine YELLOW (Yellow); Glucose,Urine (UA) Negative (Negative); Ketones,Urine Negative (Negative); Leukocyte Esterase,Urine 1+ (Negative); Nitrate,Urine POSITIVE (Negative); Protein,Urine Negative (Negative); Specific Gravity, Urine <= 1.005 (1.005-1.030); Urobilinogen,Urine 0.2 EU/dl (0.2)
[2020-12-11 02:23] LABS: Bacteria,Urine 3+ /lpf
[2020-12-11 03:19] LABS: Coronavirus 19, PCR Not Detected (NotDetected); Influenza A, PCR Not Detected (NotDetected); Influenza B, PCR Not Detected (NotDetected)
[2020-12-11 03:26] LABS: Lactic Acid 0.8 mmol/L (0.7-2.1)
--- NOTE | 2020-12-11 04:21 | PC.NURSE ---
Report called to Carly Gonzalez RN at this time
--- NOTE | 2020-12-11 05:14 | PC.NURSE ---
PT ARRIVED TP FLOOR VIA STRETCHER FROM ED W/STAFF AT [id number]
--- NOTE | 2020-12-11 06:42 | PC.NURSE ---
DR LOCK NOTIFIED OF CONSULT.
--- NOTE | 2020-12-11 06:51 | PC.NURSE ---
Patient IV in LAC infiltrated with NS & IV in RAC was leaking this shift.
--- NOTE | 2020-12-11 07:11 | HMH.PHAINT ---
MEDICATION RECONCILIATION COMPLETE USING SURESCRIPTS AND PREVIOUS OFFICE VISIT
--- NOTE | 2020-12-11 07:21 | P.CONPHA_ITS ---
[facility] Pharmacy VTE Monitoring - Patient Demographics Admission date: 12/11/20 Report Date: 12/11/20 Time: 07:21 Allergies/Adverse Reactions: Patient Allergies penicillin G [PENICILLIN G] Allergy (Unknown, Verified 11/28/20 10:42) NA-NAUSEA/VOMITING Height: 1.6 m Weight: 103.238 kg Patient Problems: Current Active Problems Diverticulitis (Acute) Obesity (Acute) UTI (urinary tract infection) (Acute) Tobacco dependence syndrome (Acute) - VTE Risk Labs: VTE Related Lab Results Hgb 14.5 g/dL (12.2-16.2) 12/11/20 00:33 Hct 44.4 % (37.0-47.0) 12/11/20 00:33 Plt Count 300 K/mm3 (142-424) 12/11/20 00:33 BUN 6 mg/dl (7-17) L 12/11/20 00:33 Creatinine 0.60 mg/dl (0.52-1.04) 12/11/20 00:33 Estimated Creat Clear 49 mL/min (50-200) 12/11/20 00:33 Clinical Trial Participant: No - Prophylaxis VTE Prophylaxis Ordered?: Yes Types of VTE Prophylaxis: TEDS Knee High
[2020-12-11 07:28] LABS: Chloride 105 mmol/L (98-107); Potassium 3.5 mmoL/L (3.5-5.1); Sodium 137 mmol/L (136-145)
[2020-12-11 07:31] LABS: Anion Gap 10.5 mEq/L (5-15); Basophils % 0.2 % (0.1-2.0); Blood Urea Nitrogen 7 mg/dl (7-17); Calcium 8.6 mg/dl (8.4-10.2); Carbon Dioxide 25 mmol/L (22.0-30.0); Creatinine Clearance Estimated 47 mL/min (50-200); Eosinophils # 0.1 K/mm3 (0.0-0.4); Eosinophils % 0.6 % (0.1-12.0); Estimated Glomerular Filt Rate 102 ml/min (>60); GFR (African American) 123 ML/MIN (>60); Glucose 102 mg/dl (74-100); Hematocrit 41.7 % (37.0-47.0); Hemoglobin 13.5 g/dL (12.2-16.2); Lymphocytes # 1.1 K/mm3 (0.7-4.5); Lymphocytes % 13.1 % (10-50); Magnesium 1.6 mg/dl (1.6-2.3); Mean Corpuscular HGB Conc 32.4 g/dL (31.8-35.4); Mean Corpuscular Hemoglobin 30.5 pg (27.0-31.2); Mean Corpuscular Volume 94.4 fl (81-99); Mean Platelet Volume 7.4 fl (7.4-10.4); Monocytes # 0.5 K/mm3 (0.1-1.0); Monocytes % 5.5 % (1.7-9.3); Neutrophils % 80.6 % (37.0-80.0); Platelet Count 244 K/mm3 (142-424); Red Blood Count 4.42 M/mm3 (4.20-5.40); White Blood Count 8.6 K/mm3 (4.8-10.8)
--- NOTE | 2020-12-11 09:10 | HMH.HP ---
*Admission Date: 12/11/20 *Chief complaint: Abdominal pain *History of present illness: 60-year-old female patient presents to the [facility] emergency department with reports of left lower quadrant abdominal pain for the past 2 days with nausea and vomiting, denies diarrhea or dysuria. Denies fever/chills/body aches. Abdomen is tender in the left side of abdomen. She denies any blood in her stool or emesis. General surgery was consulted 12/11/20 Abd/Pelvic CT: FINDINGS: Lungs: No mass/infiltrate at either lung base. No pleural effusion. Liver: The liver is normal in size and attenuation. No intrahepatic biliary dilitation. Gallbladder and bile ducts: The gallbladder is surgically absent. No evidence of extrahepatic biliary dilatation. Pancreas: Normal. No ductal dilation. Spleen: Normal. No splenomegaly. Granulomatous calcifications within the spleen are noted. Adrenal glands: Normal. No mass. Kidneys and ureters: Normal. No hydronephrosis. Stomach and bowel: There is focal thickening of the proximal sigmoid colon. Infiltration of fat within the adjacent mesentery is identified. There is a small collection of gas along the mesenteric border of the sigmoid colon which could represent a small abscess. Overall appearance is compatible with diverticulitis. There are additional diverticula noted within the sigmoid colon, descending colon, transverse colon. colon. There is a large hiatal hernia noted above the gastroesophageal junction. Appendix: The appendix is poorly visualized on this examination. Intraperitoneal space: Unremarkable. No free air. No significant fluid collection. Vasculature: Unremarkable. No abdominal aortic aneurysm. Lymph nodes: Unremarkable. No enlarged lymph nodes. Urinary bladder: Unremarkable as visualized. Reproductive: Hysterectomy has been performed. Bones/joints: There are degenerative changes noted within the lumbar spine.No acute fracture. Soft tissues: Unremarkable. IMPRESSION: 1. Findings are compatible with a focus of diverticulitis and probably a small diverticular abscess noted at the junction of the descending colon and sigmoid colon. There is edema present within the adjacent mesentery associated with this process. 2. There is a large hiatal hernia above the gastroesophageal junction. 3. Cholecystectomy and hysterectomy has been performed. Electronically signed by Anthony Welch MD 60-year-old female patient resting quietly in bed eyes open she still reports tender left-sided abdominal tenderness with palpation. [facility] History I have reviewed the patient's past medical history: Yes Medical History: Reports:: Coronary Artery Disease, Cerebrovascular Accident, Deep Vein Thrombosis, Hyperlipidemia, Hypertension, Myocardial Infarction Denies:: Cancer, Diabetes Mellitus Type 1, Diabetes Mellitus Type 2, Internal Pacemaker, MRSA, Seizures *Have you ever received a pneumonia vaccine?: No *Have you received a flu vaccine this season?: No Other Surgeries: Yes: Cardiac Catheterization, Cholecystectomy, Colonoscopy, Coronary Stent, Hysterectomy-Total, Other. No: Pacemaker Amputation: No Fractures: No - *Social History Smoking Status: Current every day smoker Tobacco Type: cigarettes # Packs/Day (cigarettes): 1 Alcohol Intake: never Alcohol Intake Frequency:: holidays/special occasions only Substance Use Type: marijuana *Occupational Status:: retired Housing: house Household Members: children *Travel in the last 8 weeks: None Family Hx:: No significant family history Review of Systems - Review of Systems Review of systems:: pertinent systems reviewed and negative unless documented below - Constitutional Denies body ache(s), Denies chills - Eyes Denies blind spots, Denies double vision - ENT Denies abnormal hearing, Denies difficulty swallowing - *Cardiovascular Denies chest pain, Denies shortness of breath - *R
--- NOTE | 2020-12-11 10:02 | HMH.GSCON ---
*Admission Date: 12/11/20 *Reason for consult:: Diverticulitis *History of present illness: Patient is a 60-year-old female. Somewhat of a poor historian. She states that she has had some postprandial nausea and vomiting for couple of days with some lower abdominal pain. This became more severe and she came into the emergency department overnight. She was evaluated with CT scan which revealed findings consistent with diverticulitis. She was admitted for inpatient management. It appears that the patient has not had a colonoscopy. She has seen Dr. May recently and colonoscopy was being planned. Review of Systems - Review of Systems Review of systems:: pertinent systems reviewed and negative unless documented below - *Neurologic Denies localized weakness, Denies seizure-like activity [facility] History I have reviewed the patient's past medical history: Yes Medical History: Reports:: Coronary Artery Disease, Cerebrovascular Accident, Deep Vein Thrombosis, Hyperlipidemia, Hypertension, Myocardial Infarction Denies:: Cancer, Diabetes Mellitus Type 1, Diabetes Mellitus Type 2, Internal Pacemaker, MRSA, Seizures *Have you ever received a pneumonia vaccine?: No *Have you received a flu vaccine this season?: No Other Surgeries: Yes: Cardiac Catheterization, Cholecystectomy, Colonoscopy, Coronary Stent, Hysterectomy-Total, Other. No: Pacemaker Amputation: No Fractures: No - *Social History Smoking Status: Current every day smoker Tobacco Type: cigarettes # Packs/Day (cigarettes): 1 Alcohol Intake: never Alcohol Intake Frequency:: holidays/special occasions only Substance Use Type: marijuana *Occupational Status:: retired Housing: house Household Members: children *Travel in the last 8 weeks: None Family Hx:: No significant family history Meds Home Medications Medication Instructions Recorded Confirmed Type paroxetine HCl 10 mg tablet 10 mg PO DAILY #30 tab 11/28/20 12/11/20 Rx Allergies Allergy/AdvReac Type Severity Reaction Status Date / Time penicillin G [PENICILLIN G] Allergy Unknown NA-NAUSEA/V Verified 11/28/20 10:42 OMITING Exam Vital signs and Labs for Last 24 Hours: Temp Pulse Resp BP Pulse Ox 97.9 F 62 16 128/69 95 12/11/20 08:00 12/11/20 08:00 12/11/20 08:00 12/11/20 08:00 12/11/20 08:00 Laboratory Results - last 24 hr 12/11/20 00:33: WBC 10.3, RBC 4.73, Hgb 14.5, Hct 44.4, MCV 93.8, MCH 30.7, MCHC 32.8, RDW 12.8, Plt Count 300, MPV 7.2 L, Neut % (Auto) 83.3 H, Lymph % (Auto) 11.0, [place] % (Auto) 3.8, Eos % (Auto) 1.6, Baso % (Auto) 0.3, Neut # (Auto) 8.6 H, Lymph # (Auto) 1.1, [place] # (Auto) 0.4, Eos # (Auto) 0.2, Baso # (Auto) 0.0, ESR 60 H 12/11/20 00:33: Sodium 136, Potassium 3.9, Chloride 100, Carbon Dioxide 27, Anion Gap 12.9, BUN 6 L, Creatinine 0.60, Estimated Creat Clear 49, Estimated GFR 102, Est GFR ( Amer) 123, Glucose 123 H, Calcium 9.3, Total Bilirubin 1.1, AST 42 H, ALT 24, Alkaline Phosphatase 100, C-Reactive Protein 30.9 H, Total Protein 8.3 H, Albumin 4.5, Globulin 3.8 H, Albumin/Globulin Ratio 1.2, Amylase 68, Lipase 108, Procalcitonin 0.050 12/11/20 02:02: Urine Color Yellow, Urine Appearance Clear, Urine pH 6.0, Ur Specific [place] <= 1.005, Urine Protein Negative, Urine Glucose (UA) Negative, Urine Ketones Negative, Urine Blood 2+, Urine Nitrate Positive, Urine Bilirubin Negative, Urine Urobilinogen 0.2, Ur Leukocyte Esterase 1+ A, Urine RBC 3-5, Urine WBC 10-20, Urine Bacteria 3+ 12/11/20 02:13: SARS-CoV-2 (PCR) Not detected, Influenza A Untype (PCR) Not detected, Influenza Type B (PCR) Not detected 12/11/20 03:05: Lactate 0.8 12/11/20 06:49: WBC 8.6, RBC 4.42, Hgb 13.5, Hct 41.7, MCV 94.4, MCH 30.5, MCHC 32.4, RDW 13.0, Plt Count 244, MPV 7.4, Neut % (Auto) 80.6 H, Lymph % (Auto) 13.1, [place] % (Auto) 5.5, Eos % (Auto) 0.6, Baso % (Auto) 0.2, Neut # (Auto) 7.0, Lymph # (Auto) 1.1, [place] # (Auto) 0.5, Eos # (Auto) 0.1, Baso # (Auto) 0.0 12/11/20 06:49: Sodium 137, Potassium
--- NOTE | 2020-12-11 15:42 | PC.NURSE ---
No acute changes. Remains on room air. HR regular. Abdomen soft, tender w/ active BS. Has been able to tolerate meals this shift, no complaints of pain/nausea. She is independent w/ ADL's. Ambulate w/ no safety concerns. She is currently sitting up in bed watching TV. No needs voiced. Visitor @ bedside. Call sam w/in reach.
[2020-12-12 04:33] VITALS: BP 133/88; PULSE 80; RESP 18; TEMP 37.7; O2SAT 97
[2020-12-12 05:00] VITALS: BMI 41.6
[2020-12-12 06:34] LABS: Basophils % 0.2 % (0.1-2.0); Eosinophils # 0.1 K/mm3 (0.0-0.4); Eosinophils % 0.6 % (0.1-12.0); Hematocrit 38.2 % (37.0-47.0); Hemoglobin 12.3 g/dL (12.2-16.2); Lymphocytes # 1.1 K/mm3 (0.7-4.5); Lymphocytes % 10.7 % (10-50); Mean Corpuscular HGB Conc 32.2 g/dL (31.8-35.4); Mean Corpuscular Hemoglobin 30.5 pg (27.0-31.2); Mean Corpuscular Volume 94.7 fl (81-99); Monocytes # 0.5 K/mm3 (0.1-1.0); Monocytes % 4.7 % (1.7-9.3); Neutrophils # 8.7 K/mm3 (1.8-7.8); Neutrophils % 83.7 % (37.0-80.0); Platelet Count 234 K/mm3 (142-424); Red Blood Count 4.04 M/mm3 (4.20-5.40); White Blood Count 10.4 K/mm3 (4.8-10.8)
[2020-12-12 06:38] LABS: Chloride 107 mmol/L (98-107); Potassium 3.4 mmoL/L (3.5-5.1); Sodium 138 mmol/L (136-145)
[2020-12-12 06:41] LABS: Anion Gap 9.4 mEq/L (5-15); Blood Urea Nitrogen 5 mg/dl (7-17); Calcium 8.5 mg/dl (8.4-10.2); Carbon Dioxide 25 mmol/L (22.0-30.0); Creatinine Clearance Estimated 47 mL/min (50-200); Estimated Glomerular Filt Rate 102 ml/min (>60); GFR (African American) 123 ML/MIN (>60); Glucose 107 mg/dl (74-100)
[2020-12-12 08:00] VITALS: BP 112/68; PULSE 80; RESP 17; TEMP 36.9; O2SAT 98
--- NOTE | 2020-12-12 09:49 | HMH.PHACONS ---
- Pharmacy Consult Date: 12/12/20 Time: 09:30 Referring provider: GABY Reason for Consult:: management of vancomycin therapy for suspected bacteremia Allergies and ADEs:: Allergies Allergy/AdvReac Type Severity Reaction Status Date / Time penicillin G [PENICILLIN G] Allergy Unknown NA-NAUSEA/V Verified 11/28/20 10:42 OMITING Home Medications:: Home Medications Medication Instructions Recorded Confirmed Type paroxetine HCl 10 mg tablet 10 mg PO DAILY #30 tab 11/28/20 12/11/20 Rx Height: 1.6 m Weight: 106.623 kg Laboratory Results:: Laboratory Results - last 24 hr 12/11/20 02:02: Urine Color Yellow, Urine Appearance Clear, Urine pH 6.0, Ur Specific [place] <= 1.005, Urine Protein Negative, Urine Glucose (UA) Negative, Urine Ketones Negative, Urine Blood 2+, Urine Nitrate Positive, Urine Bilirubin Negative, Urine Urobilinogen 0.2, Ur Leukocyte Esterase 1+ A, Urine RBC 3-5, Urine WBC 10-20, Urine Bacteria 3+ 12/12/20 06:20: WBC 10.4, RBC 4.04 L, Hgb 12.3, Hct 38.2, MCV 94.7, MCH 30.5, MCHC 32.2, RDW 13.0, Plt Count 234, MPV 7.0 L, Neut % (Auto) 83.7 H, Lymph % (Auto) 10.7, [place] % (Auto) 4.7, Eos % (Auto) 0.6, Baso % (Auto) 0.2, Neut # (Auto) 8.7 H, Lymph # (Auto) 1.1, [place] # (Auto) 0.5, Eos # (Auto) 0.1, Baso # (Auto) 0.0 12/12/20 06:20: Sodium 138, Potassium 3.4 L, Chloride 107, Carbon Dioxide 25, Anion Gap 9.4, BUN 5 L D, Creatinine 0.60, Estimated Creat Clear 47, Estimated GFR 102, Est GFR ( Amer) 123, Glucose 107 H, Calcium 8.5 Medical History: Reports:: Coronary Artery Disease, Cerebrovascular Accident, Deep Vein Thrombosis, Hyperlipidemia, Hypertension, Myocardial Infarction Denies:: Cancer, Diabetes Mellitus Type 1, Diabetes Mellitus Type 2, Internal Pacemaker, MRSA, Seizures Assessment and Plan (1) Diverticulitis Status: Acute Category: Medical Code(s): K57.92 - Diverticulitis of intestine, part unspecified, without perforation or abscess without bleeding (2) Obesity Status: Acute Qualifiers: Obesity type: due to excess calories Obesity classification: adult class 3 (BMI >= 40) Serious obesity comorbidity presence: with serious comorbidity Body mass index: BMI 40.0-44.9 Qualified Code(s): E66.01 - Morbid (severe) obesity due to excess calories; Z68.41 - Body mass index [BMI] 40.0-44.9, adult Category: Medical Code(s): E66.9 - Obesity, unspecified (3) Substance abuse Status: Acute Category: Medical Code(s): F19.10 - Other psychoactive substance abuse, uncomplicated (4) Hyperlipemia Status: Chronic Qualifiers: Hyperlipidemia type: unspecified Qualified Code(s): E78.5 - Hyperlipidemia, unspecified Category: Medical Code(s): E78.5 - Hyperlipidemia, unspecified (5) Hypertension Status: Chronic Qualifiers: Hypertension type: essential hypertension Qualified Code(s): I10 - Essential (primary) hypertension Category: Medical Code(s): I10 - Essential (primary) hypertension - Assessment and plan all Dx Assessment and Plan for all problems:: pt already on levaquin and flagyl for diverticulitis, primary care physician wants vancomycin added for suspected bacteremia. Will start vancomycin 2000mg every 24 hours. Pharmacy will follow daily and adjust as necessary.
[2020-12-12 10:42] VITALS: O2SAT 98
--- NOTE | 2020-12-12 13:05 | P.PN_ITS ---
Subjective Narrative: Patient without complaints. Tolerating full liquid diet Progress Note: A&P (1) Diverticulitis Status: Acute (2) Obesity Status: Acute (3) Substance abuse Status: Acute (4) Hyperlipemia Status: Chronic (5) Hypertension Status: Chronic Assessment and Plan for All Diagnoses:: Apparently has preliminary positive blood cultures. Cautiously advance diet Exam Vital signs and Labs for Last 24 Hours: Temp Pulse Resp BP Pulse Ox 98.4 F 80 17 112/68 98 12/12/20 08:00 12/12/20 08:00 12/12/20 08:00 12/12/20 08:00 12/12/20 10:42 Laboratory Results - last 24 hr 12/11/20 02:02: Urine Color Yellow, Urine Appearance Clear, Urine pH 6.0, Ur Specific [place] <= 1.005, Urine Protein Negative, Urine Glucose (UA) Negative, Urine Ketones Negative, Urine Blood 2+, Urine Nitrate Positive, Urine Bilirubin Negative, Urine Urobilinogen 0.2, Ur Leukocyte Esterase 1+ A, Urine RBC 3-5, Urine WBC 10-20, Urine Bacteria 3+ 12/12/20 06:20: WBC 10.4, RBC 4.04 L, Hgb 12.3, Hct 38.2, MCV 94.7, MCH 30.5, MCHC 32.2, RDW 13.0, Plt Count 234, MPV 7.0 L, Neut % (Auto) 83.7 H, Lymph % (Auto) 10.7, [place] % (Auto) 4.7, Eos % (Auto) 0.6, Baso % (Auto) 0.2, Neut # (Auto) 8.7 H, Lymph # (Auto) 1.1, [place] # (Auto) 0.5, Eos # (Auto) 0.1, Baso # (Auto) 0.0 12/12/20 06:20: Sodium 138, Potassium 3.4 L, Chloride 107, Carbon Dioxide 25, Anion Gap 9.4, BUN 5 L D, Creatinine 0.60, Estimated Creat Clear 47, Estimated GFR 102, Est GFR ( Amer) 123, Glucose 107 H, Calcium 8.5 I & O for Last 24 hours: Intake & Output 12/10/20 12/11/20 12/12/20 12/13/20 11:59 11:59 11:59 11:59 Intake Total 1561 / 1561 1826 / 1826 360 / 360 Output Total 0 / 0 Balance 1561 / 1561 1826 / 1826 360 / 360 Weight 227 lb 9.6 oz 235 lb 1 oz Microbiology Reports for the Last 24 Hours: Microbiology 12/11/20 02:02 Urine,Catheterized Urine Culture - Preliminary Gram Negative Rods 12/11/20 03:05 Blood Blood Culture - Preliminary 12/11/20 03:05 Blood Blood Culture - Preliminary - *Routine Abdominal Exam Present: soft
[2020-12-12 13:51] VITALS: BMI 41.8
--- NOTE | 2020-12-12 15:14 | HMH.ACPN2 ---
Internal Medicine - PN: Subj *Date: 12/12/20 *Time: 19:37 Interval history: 60-year-old female patient resting in bed quietly with eyes closed, awakens to verbal stimuli. She still reports left-sided abdominal pain more so left lower quadrant this morning, does report pain is less than yesterday. She denies any nausea/vomiting/diarrhea during the night. Exam Vital signs and Labs for Last 24 Hours: Temp Pulse Resp BP Pulse Ox 98.4 F 80 17 112/68 98 12/12/20 08:00 12/12/20 08:00 12/12/20 08:00 12/12/20 08:00 12/12/20 10:42 Laboratory Results - last 24 hr 12/11/20 02:02: Urine Color Yellow, Urine Appearance Clear, Urine pH 6.0, Ur Specific [place] <= 1.005, Urine Protein Negative, Urine Glucose (UA) Negative, Urine Ketones Negative, Urine Blood 2+, Urine Nitrate Positive, Urine Bilirubin Negative, Urine Urobilinogen 0.2, Ur Leukocyte Esterase 1+ A, Urine RBC 3-5, Urine WBC 10-20, Urine Bacteria 3+ 12/12/20 06:20: WBC 10.4, RBC 4.04 L, Hgb 12.3, Hct 38.2, MCV 94.7, MCH 30.5, MCHC 32.2, RDW 13.0, Plt Count 234, MPV 7.0 L, Neut % (Auto) 83.7 H, Lymph % (Auto) 10.7, [place] % (Auto) 4.7, Eos % (Auto) 0.6, Baso % (Auto) 0.2, Neut # (Auto) 8.7 H, Lymph # (Auto) 1.1, [place] # (Auto) 0.5, Eos # (Auto) 0.1, Baso # (Auto) 0.0 12/12/20 06:20: Sodium 138, Potassium 3.4 L, Chloride 107, Carbon Dioxide 25, Anion Gap 9.4, BUN 5 L D, Creatinine 0.60, Estimated Creat Clear 47, Estimated GFR 102, Est GFR ( Amer) 123, Glucose 107 H, Calcium 8.5 I & O for Last 24 hours: Intake & Output 12/09/20 12/10/20 12/11/20 12/12/20 23:59 23:59 23:59 23:59 Intake Total 3026 / 7 720 / 720 Output Total 0 / 0 Balance 3026 / 3026 720 / 720 Weight 250 lb 227 lb 9.6 oz 235 lb 14.314 oz Microbiology Reports for the Last 24 Hours: Microbiology 12/11/20 02:02 Urine,Catheterized Urine Culture - Preliminary Gram Negative Rods 12/11/20 03:05 Blood Blood Culture - Preliminary 12/11/20 03:05 Blood Blood Culture - Preliminary - Constitutional no acute distress, morbidly obese - *Routine HEENT Exam Head: Present: normocephalic Eye: Present: EOMI ENT: Present: mucous membranes moist - *Routine Neck Exam Present: trachea midline. Absent: tracheal deviation - *Routine Respiratory Exam Present: decreased breath sounds. Absent: accessory muscle use - *Routine Cardiovascular Exam Present: RRR - *Routine Abdominal Exam Present: soft, normoactive bowel sounds, tenderness. Absent: distended - *Routine Extremities Exam Present: full ROM, pulses intact. Absent: cyanosis, clubbing - *Routine Skin Exam Present: intact, dry. Absent: cyanosis, erythema - *Routine Neurological Exam Present: alert, oriented X3. Absent: motor deficit - Routine Psychiatric Exam Present: normal affect, normal thought process. Absent: visual hallucinations Assessment and Plan (1) Diverticulitis Status: Acute Category: Medical Code(s): K57.92 - Diverticulitis of intestine, part unspecified, without perforation or abscess without bleeding (2) Obesity Status: Acute Qualifiers: Obesity type: due to excess calories Obesity classification: adult class 3 (BMI >= 40) Serious obesity comorbidity presence: with serious comorbidity Body mass index: BMI 40.0-44.9 Qualified Code(s): E66.01 - Morbid (severe) obesity due to excess calories; Z68.41 - Body mass index [BMI] 40.0-44.9, adult Category: Medical Code(s): E66.9 - Obesity, unspecified (3) Substance abuse Status: Acute Category: Medical Code(s): F19.10 - Other psychoactive substance abuse, uncomplicated (4) Hyperlipemia Status: Chronic Qualifiers: Hyperlipidemia type: unspecified Qualified Code(s): E78.5 - Hyperlipidemia, unspecified Category: Medical Code(s): E78.5 - Hyperlipidemia, unspecified (5) Hypertension Status: Chronic Qualifiers: Hypertension type: essential hypertension Categ
[2020-12-12 15:51] VITALS: BP 127/72; PULSE 78; RESP 16; TEMP 37.1; O2SAT 98
--- NOTE | 2020-12-13 03:06 | PC.NURSE ---
No acute changes this shift. Pt has denied any pain, N/V this shift. Pt ambulates independently in room. VSS, call light within reach, will continue to monitor.
[2020-12-13 04:00] VITALS: BP 112/66; PULSE 76; RESP 18; TEMP 37.1; O2SAT 96
[2020-12-13 04:53] VITALS: BMI 41.6
[2020-12-13 06:20] LABS: Basophils % 0.5 % (0.1-2.0); Eosinophils # 0.1 K/mm3 (0.0-0.4); Eosinophils % 1.2 % (0.1-12.0); Hematocrit 36.9 % (37.0-47.0); Hemoglobin 11.6 g/dL (12.2-16.2); Lymphocytes # 1.2 K/mm3 (0.7-4.5); Lymphocytes % 18.4 % (10-50); Mean Corpuscular HGB Conc 31.3 g/dL (31.8-35.4); Mean Corpuscular Hemoglobin 29.6 pg (27.0-31.2); Mean Corpuscular Volume 94.8 fl (81-99); Mean Platelet Volume 7.6 fl (7.4-10.4); Monocytes # 0.3 K/mm3 (0.1-1.0); Neutrophils # 5.1 K/mm3 (1.8-7.8); Platelet Count 227 K/mm3 (142-424); White Blood Count 6.8 K/mm3 (4.8-10.8)
[2020-12-13 06:27] LABS: Chloride 110 mmol/L (98-107); Potassium 3.6 mmoL/L (3.5-5.1); Sodium 142 mmol/L (136-145)
[2020-12-13 06:30] LABS: Anion Gap 10.6 mEq/L (5-15); Blood Urea Nitrogen 5 mg/dl (7-17); Carbon Dioxide 25 mmol/L (22.0-30.0); Creatinine Clearance Estimated 47 mL/min (50-200); Estimated Glomerular Filt Rate 102 ml/min (>60); GFR (African American) 123 ML/MIN (>60)
[2020-12-13 06:31] LABS: Calcium 8.5 mg/dl (8.4-10.2); Glucose 94 mg/dl (74-100)
--- NOTE | 2020-12-13 06:35 | HMH.GSPN ---
Subjective Patient reports: no new complaints, feels better, still having pain, pain is less Progress Note: A&P (1) Diverticulitis Status: Acute Assessment and plan: Continue to improve on current antibiotic regimen Outpatient colonoscopy in 6-8 weeks (2) Obesity Status: Acute (3) Substance abuse Status: Acute (4) Hyperlipemia Status: Chronic (5) Hypertension Status: Chronic Assessment and Plan for All Diagnoses:: Final blood cultures pending Exam Vital signs and Labs for Last 24 Hours: Temp Pulse Resp BP Pulse Ox 98.8 F 76 18 112/66 96 12/13/20 04:00 12/13/20 04:00 12/13/20 04:00 12/13/20 04:00 12/13/20 04:00 Laboratory Results - last 24 hr 12/11/20 02:02: Urine Color Yellow, Urine Appearance Clear, Urine pH 6.0, Ur Specific [place] <= 1.005, Urine Protein Negative, Urine Glucose (UA) Negative, Urine Ketones Negative, Urine Blood 2+, Urine Nitrate Positive, Urine Bilirubin Negative, Urine Urobilinogen 0.2, Ur Leukocyte Esterase 1+ A, Urine RBC 3-5, Urine WBC 10-20, Urine Bacteria 3+ 12/12/20 06:20: WBC 10.4, RBC 4.04 L, Hgb 12.3, Hct 38.2, MCV 94.7, MCH 30.5, MCHC 32.2, RDW 13.0, Plt Count 234, MPV 7.0 L, Neut % (Auto) 83.7 H, Lymph % (Auto) 10.7, [place] % (Auto) 4.7, Eos % (Auto) 0.6, Baso % (Auto) 0.2, Neut # (Auto) 8.7 H, Lymph # (Auto) 1.1, [place] # (Auto) 0.5, Eos # (Auto) 0.1, Baso # (Auto) 0.0 12/12/20 06:20: Sodium 138, Potassium 3.4 L, Chloride 107, Carbon Dioxide 25, Anion Gap 9.4, BUN 5 L D, Creatinine 0.60, Estimated Creat Clear 47, Estimated GFR 102, Est GFR ( Amer) 123, Glucose 107 H, Calcium 8.5 12/13/20 05:50: WBC 6.8 D, RBC 3.90 L, Hgb 11.6 L, Hct 36.9 L, MCV 94.8, MCH 29.6, MCHC 31.3 L, RDW 13.0, Plt Count 227, MPV 7.6, Neut % (Auto) 75.0, Lymph % (Auto) 18.4, [place] % (Auto) 5.0, Eos % (Auto) 1.2, Baso % (Auto) 0.5, Neut # (Auto) 5.1, Lymph # (Auto) 1.2, [place] # (Auto) 0.3, Eos # (Auto) 0.1, Baso # (Auto) 0.0 12/13/20 05:50: Sodium 142, Potassium 3.6, Chloride 110 H, Carbon Dioxide 25, Anion Gap 10.6, BUN 5 L, Creatinine 0.60, Estimated Creat Clear 47, Estimated GFR 102, Est GFR ( Amer) 123, Glucose 94, Calcium 8.5 I & O for Last 24 hours: Intake & Output 12/10/20 12/11/20 12/12/20 12/13/20 11:59 11:59 11:59 11:59 Intake Total 1561 / 1561 1826 / 1826 600 / 600 Output Total 0 / 0 Balance 1561 / 1561 1826 / 1826 600 / 600 Weight 227 lb 9.6 oz 235 lb 1 oz 235 lb Microbiology Reports for the Last 24 Hours: Microbiology 12/11/20 02:02 Urine,Catheterized Urine Culture - Preliminary Gram Negative Rods 12/11/20 03:05 Blood Blood Culture - Preliminary 12/11/20 03:05 Blood Blood Culture - Preliminary - Constitutional no acute distress - *Routine Respiratory Exam Absent: respiratory distress - *Routine Cardiovascular Exam Present: RRR - *Routine Abdominal Exam Present: soft
[2020-12-13 08:00] VITALS: BP 139/73; PULSE 73; RESP 17; TEMP 36.7; O2SAT 98
--- NOTE | 2020-12-13 08:52 | HMH.ACPN2 ---
Internal Medicine - PN: Subj *Date: 12/13/20 *Time: 08:52 Interval history: 60-year-old female patient sitting up in bed resting quietly, boyfriend at bedside. She reports a lot less abdominal pain today and abdomen is less tender with palpation. Currently awaiting final results on blood cultures. Urine culture reveals E. coli and she is currently on levofloxacin IV. Discussed with patient will discharge upon results of blood cultures and she is in agreement with this. Exam Vital signs and Labs for Last 24 Hours: Temp Pulse Resp BP Pulse Ox 98 F 68 16 119/71 97 12/13/20 20:00 12/13/20 20:00 12/13/20 20:00 12/13/20 20:00 12/13/20 20:00 Laboratory Results - last 24 hr 12/13/20 05:50: WBC 6.8 D, RBC 3.90 L, Hgb 11.6 L, Hct 36.9 L, MCV 94.8, MCH 29.6, MCHC 31.3 L, RDW 13.0, Plt Count 227, MPV 7.6, Neut % (Auto) 75.0, Lymph % (Auto) 18.4, [place] % (Auto) 5.0, Eos % (Auto) 1.2, Baso % (Auto) 0.5, Neut # (Auto) 5.1, Lymph # (Auto) 1.2, [place] # (Auto) 0.3, Eos # (Auto) 0.1, Baso # (Auto) 0.0 12/13/20 05:50: Sodium 142, Potassium 3.6, Chloride 110 H, Carbon Dioxide 25, Anion Gap 10.6, BUN 5 L, Creatinine 0.60, Estimated Creat Clear 47, Estimated GFR 102, Est GFR ( Amer) 123, Glucose 94, Calcium 8.5 I & O for Last 24 hours: Intake & Output 12/10/20 12/11/20 12/12/20 12/13/20 23:59 23:59 23:59 23:59 Intake Total 3027 / 3027 960 / 960 1680 / 1680 Output Total 0 / 0 400 / 400 Balance 3027 / 3027 960 / 960 1280 / 1280 Weight 250 lb 227 lb 9.6 oz 235 lb 14.314 oz 235 lb Microbiology Reports for the Last 24 Hours: Microbiology 12/11/20 03:05 Blood Blood Culture - Preliminary Gram Positive Cocci 12/11/20 03:05 Blood Blood Culture - Preliminary Gram Positive Cocci 12/11/20 02:02 Urine,Catheterized Urine Culture - Final Escherichia coli - Constitutional no acute distress, morbidly obese - *Routine HEENT Exam Head: Present: normocephalic Eye: Present: EOMI ENT: Present: mucous membranes moist - *Routine Neck Exam Present: supple, trachea midline. Absent: tracheal deviation - *Routine Respiratory Exam Present: decreased breath sounds, CTA bilaterally. Absent: accessory muscle use - *Routine Cardiovascular Exam Present: RRR - *Routine Abdominal Exam Present: soft, normoactive bowel sounds, tenderness. Absent: distended, firm - *Routine Extremities Exam Present: cyanosis, edema, full ROM, pulses intact. Absent: clubbing - *Routine Skin Exam Present: intact, dry, warm. Absent: cyanosis, erythema - *Routine Neurological Exam Present: alert, oriented X3. Absent: pronator drift - Routine Psychiatric Exam Present: normal affect, normal thought process. Absent: homicidal ideation Assessment and Plan (1) Diverticulitis Status: Acute Category: Medical Code(s): K57.92 - Diverticulitis of intestine, part unspecified, without perforation or abscess without bleeding (2) Obesity Status: Acute Qualifiers: Obesity type: due to excess calories Obesity classification: adult class 3 (BMI >= 40) Serious obesity comorbidity presence: with serious comorbidity Body mass index: BMI 40.0-44.9 Qualified Code(s): E66.01 - Morbid (severe) obesity due to excess calories; Z68.41 - Body mass index [BMI] 40.0-44.9, adult Category: Medical Code(s): E66.9 - Obesity, unspecified (3) Substance abuse Status: Acute Category: Medical Code(s): F19.10 - Other psychoactive substance abuse, uncomplicated (4) Hyperlipemia Status: Chronic Qualifiers: Hyperlipidemia type: unspecified Qualified Code(s): E78.5 - Hyperlipidemia, unspecified Category: Medical Code(s): E78.5 - Hyperlipidemia, unspecified (5) Hypertension Status: Chronic Qualifiers: Hypertension type: essential hypertension Category: Medical Code(s): I10 - Essential (primary) hypertension
[2020-12-13 16:00] VITALS: BP 129/85; PULSE 72; RESP 17; TEMP 36.9; O2SAT 99
--- NOTE | 2020-12-13 16:46 | PC.NURSE ---
aox4, ambulates in room independently. new iv to right hand inserted this shift. denies n/v/d this shift. her vital signs have remained stable this shift.
[2020-12-13 20:00] VITALS: BP 119/71; PULSE 68; RESP 16; TEMP 36.6; O2SAT 97
--- NOTE | 2020-12-14 03:27 | PC.NURSE ---
No acute changes this shift. Pt rested well. Pt c/o of pain X1 to LLQ, admin meds per MAR with relief. VSS, call light within reach, will continue to monitor.
[2020-12-14 03:56] VITALS: BP 133/85; PULSE 73; RESP 17; TEMP 36.6; O2SAT 98
[2020-12-14 05:00] VITALS: BMI 41.5
[2020-12-14 06:19] LABS: Basophils % 0.4 % (0.1-2.0); Eosinophils # 0.1 K/mm3 (0.0-0.4); Eosinophils % 1.5 % (0.1-12.0); Hematocrit 37.9 % (37.0-47.0); Hemoglobin 11.9 g/dL (12.2-16.2); Lymphocytes # 0.6 K/mm3 (0.7-4.5); Lymphocytes % 12.1 % (10-50); Mean Corpuscular HGB Conc 31.4 g/dL (31.8-35.4); Mean Corpuscular Hemoglobin 29.7 pg (27.0-31.2); Mean Corpuscular Volume 94.5 fl (81-99); Monocytes # 0.2 K/mm3 (0.1-1.0); Monocytes % 5.1 % (1.7-9.3); Neutrophils # 3.8 K/mm3 (1.8-7.8); Neutrophils % 80.9 % (37.0-80.0); Platelet Count 232 K/mm3 (142-424); Red Blood Count 4.01 M/mm3 (4.20-5.40); Red Cell Distribution Width 12.9 % (11.5-17.5); White Blood Count 4.7 K/mm3 (4.8-10.8)
[2020-12-14 06:23] LABS: Chloride 107 mmol/L (98-107); Sodium 139 mmol/L (136-145)
[2020-12-14 06:24] LABS: Potassium 3.8 mmoL/L (3.5-5.1)
[2020-12-14 06:26] LABS: Blood Urea Nitrogen 4 mg/dl (7-17); Creatinine Clearance Estimated 47 mL/min (50-200); Estimated Glomerular Filt Rate 102 ml/min (>60); GFR (African American) 123 ML/MIN (>60)
[2020-12-14 06:27] LABS: Anion Gap 8.8 mEq/L (5-15); Calcium 8.5 mg/dl (8.4-10.2); Carbon Dioxide 27 mmol/L (22.0-30.0); Glucose 105 mg/dl (74-100)
[2020-12-14 07:40] VITALS: BP 131/71; PULSE 81; RESP 18; TEMP 36.7; O2SAT 98
[2020-12-14 09:26] LABS: Vancomycin,Trough 8.6 ug/mL (5.0-10.0)
--- NOTE | 2020-12-14 11:52 | HMH.DCSUM ---
General - General Admission date:: 12/11/20 Discharge date: 12/14/20 HPI HPI: 60-year-old female patient presents to the [facility] emergency department with reports of left lower quadrant abdominal pain for the past 2 days with nausea and vomiting, denies diarrhea or dysuria. Denies fever/chills/body aches. Abdomen is tender in the left side of abdomen. She denies any blood in her stool or emesis. General surgery was consulted 12/11/20 Abd/Pelvic CT: FINDINGS: Lungs: No mass/infiltrate at either lung base. No pleural effusion. Liver: The liver is normal in size and attenuation. No intrahepatic biliary dilitation. Gallbladder and bile ducts: The gallbladder is surgically absent. No evidence of extrahepatic biliary dilatation. Pancreas: Normal. No ductal dilation. Spleen: Normal. No splenomegaly. Granulomatous calcifications within the spleen are noted. Adrenal glands: Normal. No mass. Kidneys and ureters: Normal. No hydronephrosis. Stomach and bowel: There is focal thickening of the proximal sigmoid colon. Infiltration of fat within the adjacent mesentery is identified. There is a small collection of gas along the mesenteric border of the sigmoid colon which could represent a small abscess. Overall appearance is compatible with diverticulitis. There are additional diverticula noted within the sigmoid colon, descending colon, transverse colon. colon. There is a large hiatal hernia noted above the gastroesophageal junction. Appendix: The appendix is poorly visualized on this examination. Intraperitoneal space: Unremarkable. No free air. No significant fluid collection. Vasculature: Unremarkable. No abdominal aortic aneurysm. Lymph nodes: Unremarkable. No enlarged lymph nodes. Urinary bladder: Unremarkable as visualized. Reproductive: Hysterectomy has been performed. Bones/joints: There are degenerative changes noted within the lumbar spine.No acute fracture. Soft tissues: Unremarkable. IMPRESSION: 1. Findings are compatible with a focus of diverticulitis and probably a small diverticular abscess noted at the junction of the descending colon and sigmoid colon. There is edema present within the adjacent mesentery associated with this process. 2. There is a large hiatal hernia above the gastroesophageal junction. 3. Cholecystectomy and hysterectomy has been performed. Electronically signed by Anthony Welch MD 60-year-old female patient resting quietly in bed eyes open she still reports tender left-sided abdominal tenderness with palpation. Hospital Course Hospital Course: Laboratory Tests 12/11/20 12/11/20 12/11/20 00:33 00:33 02:02 WBC 10.3 RBC 4.73 Hgb 14.5 Hct 44.4 MCV 93.8 MCH 30.7 MCHC 32.8 RDW 12.8 Plt Count 300 MPV 7.2 L Neut % (Auto) 83.3 H Lymph % (Auto) 11.0 [place] % (Auto) 3.8 Eos % (Auto) 1.6 Baso % (Auto) 0.3 Neut # (Auto) 8.6 H Lymph # (Auto) 1.1 [place] # (Auto) 0.4 Eos # (Auto) 0.2 Baso # (Auto) 0.0 ESR 60 H Sodium 136 Potassium 3.9 Chloride 100 Carbon Dioxide 27 Anion Gap 12.9 BUN 6 L Creatinine 0.60 Estimated Creat Clear 49 Estimated GFR 102 Est GFR ( Amer) 123 Glucose 123 H Lactate Calcium 9.3 Magnesium Total Bilirubin 1.1 AST 42 H ALT 24 Alkaline Phosphatase 100 C-Reactive Protein 30.9 H Total Protein 8.3 H Albumin 4.5 Globulin 3.8 H Albumin/Globulin Ratio 1.2 Amylase 68 Lipase 108 Procalcitonin 0.050 Urine Color Yellow Urine Appearance Clear Urine pH 6.0 Ur Specific [place] <= 1.005 Urine Protein Negative Urine Glucose (UA) Negative Urine Ketones Negative Urine Blood 2+ Urine Nitrate Positive Urine Bilirubin Negative Urine Urobilinogen 0.2 Ur Leukocyte Esterase 1+ A Urine RBC 3-5 Urine WBC 10-
--- NOTE | 2020-12-14 13:56 | HMH.PHAINT ---
MEDICATION DISCHARGE COUNSELING COMPLETE. DISCUSSED HOW TO TAKE, ADES FOR LEVAQUIN AND FLAGYL (NO ALCOHOL)
== END 2020-12-14 14:49 | disposition home or self-care (01) | DRG 392 ==
LOC: ER 12-11 00:29 → 2ND 12-11 04:25
PROVIDERS: Admitting Provider Emergency Medicine; Emergency Provider Emergency Medicine; PCP Nurse Practitioner Family; Visit Provider Emergency Medicine
DX: K57.32 Diverticulitis of large intestine without perforation or abscess without bleeding (principal); N39.0 Urinary tract infection, site not specified; Z68.41 Body mass index [BMI] 40.0-44.9, adult; I10 Essential (primary) hypertension; F17.210 Nicotine dependence, cigarettes, uncomplicated; E66.01 Morbid (severe) obesity due to excess calories; Z86.718 Personal history of other venous thrombosis and embolism; E78.5 Hyperlipidemia, unspecified; Z95.5 Presence of coronary angioplasty implant and graft; B96.20 Unspecified Escherichia coli [E. coli] as the cause of diseases classified elsewhere; F19.10 Other psychoactive substance abuse, uncomplicated; I25.10 Atherosclerotic heart disease of native coronary artery without angina pectoris; I25.2 Old myocardial infarction
CPT/HCPCS: 36415; 74177; 80048; 80053; 80202; 81001; 82150; 83605; 83690; 83735; 84145; 85025; 85651; 86140; 87040; 87077; 87086; 87088; 87186; 96365; 96367; 96375; 99285; C9803; J1956; J2405; J3370; Q9967; U0003; U0005

== ENCOUNTER → 2021-01-03 13:41 | Outpatient (CLI) | payer MEDICARE, BC, SELFPAY ==
[2021-01-03 14:56] LABS: Blood Urea Nitrogen 14 mg/dl (7-17); Estimated Glomerular Filt Rate 85 ml/min (>60); GFR (African American) 103 ML/MIN (>60)
== END ==
PROVIDERS: Visit Provider Surgery
DX: Z01.812 Encounter for preprocedural laboratory examination (principal)
CPT/HCPCS: 36415; 82565; 84520

== ENCOUNTER → 2021-01-08 09:38 | Outpatient (CLI) | payer MEDICARE, BC, SELFPAY ==
--- NOTE | 2021-01-08 09:39 | CT_ITS ---
PROCEDURE: CT ABDOMEN PELVIS W CON CLINICAL INDICATION: divertiucltis COMPARISON: CT CT ABDOMEN PELVIS W CON from 12/11/2020 TECHNIQUE: IV Contrast: 75ML Isovue 370 Oral Contrast 450ml Redicat Axial images obtained with sagittal and coronal reformats. All CT scans at the facility use one or more dose reduction, viz: automated exposure control, ma/kV adjustment per patient size (including targeted exams where dose is matched to indication, i.e. head), or iterative reconstruction technique. FINDINGS: LOWER THORAX: No acute finding ABDOMEN & PELVIS: There is a medium-sized hiatal hernia. There has been a prior cholecystectomy. The liver, spleen, adrenal glands, and pancreas have an unremarkable appearance. No renal or ureteral calculi. No hydronephrosis. No intestinal obstruction or free air. No evidence of appendicitis. There is colonic diverticulosis. The diverticulitis at the junction of the descending and sigmoid colon has shown improvement. There does remain some thickening and mild haziness of the pericolic fat at this region. No abscess evident.. No abnormal fluid collection. There are post hysterectomy changes. IMPRESSION: Interval improvement in the appearance of diverticulitis in the left lower quadrant. There remains some minimal thickening of the colon and minimal haziness of the pericolic fat at this region suggesting some mild residual inflammation. No evidence of pericolic abscess. Previously noted collection in the left lower quadrant no longer apparent. Colonic diverticulosis once again noted Hiatal hernia Dictated by: Raman Silva MD 01/09/2021 16:57 Raman Silva MD in [place] 01/09/2021 16:57
== END ==
PROVIDERS: PCP Nurse Practitioner Family; Visit Provider Surgery
DX: K57.92 Diverticulitis of intestine, part unspecified, without perforation or abscess without bleeding (principal)
CPT/HCPCS: 74177; Q9967

== ENCOUNTER → 2021-01-15 13:00 | Outpatient (CLI) | payer MEDICARE, BC, SELFPAY ==
[2021-01-15 13:45] VITALS: PULSE 73; PULSE 77
== END ==
PROVIDERS: PCP Nurse Practitioner Family; Visit Provider Nurse Practitioner Family
DX: R06.02 Shortness of breath (principal)
CPT/HCPCS: 94060; 94640; 94727; 94729

== ENCOUNTER → 2021-02-18 12:19 | Outpatient (CLI) | payer MEDICARE, BC, SELFPAY | PROVIDERS: Visit Provider Surgery | DX: Z01.812 Encounter for preprocedural laboratory examination (principal); Z11.52 Encounter for screening for COVID-19; Z12.11 Encounter for screening for malignant neoplasm of colon | CPT/HCPCS: C9803; U0003; U0005 ==

== ENCOUNTER 2021-02-20 12:31 | Day surgery (SDC) | payer MEDICARE, BC, SELFPAY ==
[2021-02-12 13:38] VITALS: BMI 39.8
--- NOTE | 2021-02-12 13:51 | SUR.PREOP ---
spoke with Abeba at Dr. Jain office to get cardiac clearance and instructions on Clopidogrel. Need to call pt back when receive instructions.
--- NOTE | 2021-02-12 14:11 | SUR.PREOP ---
Dr. toledo will not give clearance, pt has not had a follow up since 2019. TC to pt to update. Pt had difficult time understanding. transferred pt to Dr. Toledo office directly.
[2021-02-20] VITALS (7 sets, daily range): BP systolic 104–129; BP diastolic 56–81; PULSE 60–82; RESP 16–18; TEMP 36.1–36.5; O2SAT 98–100
--- NOTE | 2021-02-20 13:32 | P.PCN_ITS ---
- Procedure: Date: 02/20/21 Patient Date of :: 1960 Procedure Performed:: Limited sigmoidoscopy Indications:: Patient is a 60-year-old female who presents for colonoscopy. She was hospitalized with diverticulitis. This was managed nonoperatively with out patient antibiotics. CT scan initially on 12/11/2020 revealed small amount of fluid adjacent to the sigmoid colon possibly developing abscess. She is without complaints. She completed for quinolone and metronidazole. Of note, the patient has never had a prior colonoscopy. I had her undergo follow-up CT scan. This revealed some minimal inflammatory changes at the sigmoid colon but no evidence of any fluid collection consistent with diverticulitis. Plan was made to proceed with colonoscopy. Of note, patient presented for colonoscopy and had continued to take her Plavix until the morning of her scheduled procedure. She did not finish her bowel prep until an hour before her scheduled procedure time Performing Provider:: Yordy De La Cruz MD Referring Provider:: Avtar Ward Sedation:: MAC sedation Procedure:: Patient was taken to endoscopy procedure room. She was positioned in lateral decubitus position. Adequate intravenous sedation was achieved. Digital examination was performed. Variable stiffness Olympus colonoscope was inserted via the anus. There was stool coating the fair of the rectum. Irrigation was performed and the colonoscope was advanced to the distal sigmoid colon. However there was a large amount of stool present and colonoscope could not be safely advanced beyond this due to lack of visualization. Colonoscope was withdrawn. Findings:: Poor preparation Recommendations:: She will need a colonoscopy with full preparation and holding antiplatelet agents Complications:: None immediately apparent Estimated blood obtained (mL): 0
--- NOTE | 2021-02-20 13:36 | P.PN_ITS ---
[facility] Anesthesia Checklist - Structural Data Admitted From: Home Planned Operative Procedure/s: sigmoidoscopy Consent for Planned Operative Procedure(s) Verified: Yes - Airway Assessment C-Spine Mobility Assessed: Yes TMJ Mobility Assessed: Yes Dentition: Edentulous - Neurological Assessment Level of Consciousness: Awake, Alert, Appropriate - Anesthesia Plan Anesthesia Risk discussed: Yes Anesthesia Plan: Verified ASA Class: III Anesthesia Type: MAC [facility] History I have reviewed the patient's past medical history: Yes Medical History: Reports:: Coronary Artery Disease, Cerebrovascular Accident, Deep Vein Thrombosis, Hyperlipidemia, Hypertension, Myocardial Infarction Denies:: Cancer, Diabetes Mellitus Type 1, Diabetes Mellitus Type 2, Internal Pacemaker, MRSA, Seizures *Have you ever received a pneumonia vaccine?: No *Have you received a flu vaccine this season?: No Anesthesia experience/problems:: none Other Surgeries: Yes: No Previous Surgery, Cardiac Catheterization, Cholecystectomy, Colonoscopy, Coronary Stent, Hysterectomy-Total, Other. No: Pacemaker Amputation: No Fractures: No - *Social History Smoking Status: Current every day smoker Tobacco Type: cigarettes # Packs/Day (cigarettes): 1 Alcohol Intake: current Alcohol Intake Frequency:: a few times a week Substance Use Type: marijuana *Occupational Status:: unemployed Housing: house Household Members: children *Travel in the last 8 weeks: None Family Hx:: No significant family history
== END 2021-02-20 14:22 | disposition home or self-care (01) ==
LOC: OUTP 12:33
PROVIDERS: PCP Nurse Practitioner Family; Visit Provider Surgery
PROC: 0DJD8ZZ Inspection of Lower Intestinal Tract, Via Natural or Artificial Opening Endoscopic (ICD-10-PCS; CPT 45330; principal; 2021-02-20 13:30)
DX: K57.32 Diverticulitis of large intestine without perforation or abscess without bleeding (principal); E78.5 Hyperlipidemia, unspecified; I10 Essential (primary) hypertension; Z95.5 Presence of coronary angioplasty implant and graft; I25.10 Atherosclerotic heart disease of native coronary artery without angina pectoris; Z79.899 Other long term (current) drug therapy; Z88.0 Allergy status to penicillin
CPT/HCPCS: 45330

== ENCOUNTER → 2021-04-03 08:16 | Outpatient (CLI) | payer MEDICARE, BC, SELFPAY ==
[2021-04-03 08:45] LABS: Basophils # 0.2 K/mm3 (0-0.2); Basophils % 3.4 % (0.1-2.0); Eosinophils # 0.1 K/mm3 (0.0-0.4); Eosinophils % 1.1 % (0.1-12.0); Hematocrit 39.2 % (37.0-47.0); Hemoglobin 12.8 g/dL (12.2-16.2); Lymphocytes # 1.2 K/mm3 (0.7-4.5); Lymphocytes % 25.8 % (10-50); Mean Corpuscular HGB Conc 32.6 g/dL (31.8-35.4); Mean Corpuscular Hemoglobin 31.1 pg (27.0-31.2); Mean Corpuscular Volume 95.6 fl (81-99); Mean Platelet Volume 7.8 fl (7.4-10.4); Monocytes # 0.2 K/mm3 (0.1-1.0); Monocytes % 3.9 % (1.7-9.3); Neutrophils # 3.1 K/mm3 (1.8-7.8); Neutrophils % 65.8 % (37.0-80.0); Platelet Count 271 K/mm3 (142-424); Red Cell Distribution Width 13.7 % (11.5-17.5); White Blood Count 4.7 K/mm3 (4.8-10.8)
[2021-04-03 09:47] LABS: D-Dimer 0.75 ug/mL (0.0-0.5)
[2021-04-03 10:06] LABS: Blood Urea Nitrogen 25 mg/dl (7-17); Estimated Glomerular Filt Rate 64 ml/min (>60); GFR (African American) 77 ML/MIN (>60)
[2021-04-09 02:27] LABS: D001-IgE D pteronyssinus <0.10 kU/L (Class 0); D002-IgE D farinae <0.10 kU/L (Class 0); E001-IgE Cat Dander <0.10 kU/L (Class 0); E005-IgE Dog Dander <0.10 kU/L (Class 0); E072-IgE Mouse Urine <0.10 kU/L (Class 0); G002-IgE Bermuda Grass <0.10 kU/L (Class 0); G006-IgE Timothy Grass <0.10 kU/L (Class 0); I006-IgE Cockroach, German <0.10 kU/L (Class 0); Immunoglobulin E, Total 30 IU/mL (6-495); M001-IgE Penicillium chrysogen <0.10 kU/L (Class 0); M002-IgE Cladosporium herbarum <0.10 kU/L (Class 0); M003-IgE Aspergillus fumigatus <0.10 kU/L (Class 0); M006-IgE Alternaria alternata <0.10 kU/L (Class 0); T001-IgE Maple/Box Elder <0.10 kU/L (Class 0); T003-IgE Common Silver Birch <0.10 kU/L (Class 0); T006-IgE Cedar, Mountain <0.10 kU/L (Class 0); T007-IgE Oak, White <0.10 kU/L (Class 0); T008-IgE Elm, American <0.10 kU/L (Class 0); T010-IgE Walnut <0.10 kU/L (Class 0); T011-IgE Maple Leaf Sycamore <0.10 kU/L (Class 0); T014-IgE Cottonwood <0.10 kU/L (Class 0); T015-IgE Ash, White <0.10 kU/L (Class 0); T022-IgE Pecan, Hickory <0.10 kU/L (Class 0); T070-IgE White Mulberry <0.10 kU/L (Class 0); W001-IgE Ragweed, Short <0.10 kU/L (Class 0); W011-IgE Thistle, Russian <0.10 kU/L (Class 0); W014-IgE Pigweed, Common <0.10 kU/L (Class 0); W018-IgE Sheep Sorrel <0.10 kU/L (Class 0)
== END ==
PROVIDERS: PCP Nurse Practitioner Family; Visit Provider Internal Medicine Pulmonary Disease
DX: J45.909 Unspecified asthma, uncomplicated (principal)
CPT/HCPCS: 36415; 82565; 82785; 84520; 85025; 85378; 86003

== ENCOUNTER → 2021-04-09 08:14 | Outpatient (CLI) | payer MEDICARE, BC, SELFPAY ==
--- NOTE | 2021-04-09 08:15 | CT_ITS ---
FINAL REPORT TECHNIQUE: Then section axial CT images of the chest were obtained with contrast. Three-D reformatted images were also obtained.This study was performed with techniques to keep radiation doses as low as reasonably achievable (ALARA). Individualized dose reduction techniques using automated exposure control or adjustment of mA and/or kV according to the patient''s size were employed. CLINICAL HISTORY: Hypoxia, SOA, NO PRIOR FINDINGS: There is no evidence of pulmonary embolism. There is no evidence of thoracic aortic aneurysm or dissection. There is no evidence of mediastinal or hilar mass or adenopathy. There is a large hiatal hernia. There are several small thyroid nodules. There is no evidence of pulmonary mass or suspicious nodule. There are several calcified granulomas. No localized inflammatory process is seen within the lungs. Limited images of the upper abdomen demonstrate postoperative changes from cholecystectomy. IMPRESSION: 1. No evidence of pulmonary embolism. 2. No mass or localized inflammatory process. 3. Several small thyroid nodules. Consider thyroid ultrasound. Reviewed, Interpreted and Dictated by Yordy Skinner III, MD Transcribed by Malinda Salamanca Authenticated by Yordy Skinner III, MD on 04/09/2021 10:12:07 AM [facility]
== END ==
PROVIDERS: PCP Nurse Practitioner Family; Visit Provider Internal Medicine Pulmonary Disease
DX: R06.02 Shortness of breath (principal); Z86.718 Personal history of other venous thrombosis and embolism
CPT/HCPCS: 71275; 94762; Q9967

== ENCOUNTER 2021-06-18 20:19 | Emergency (ER) | payer MEDICARE, BC, SELFPAY ==
[2021-06-18 20:29] VITALS: BP 104/71; PULSE 95; RESP 18; O2SAT 100; BMI 41.3
[2021-06-18 20:38] VITALS: BP 119/77; PULSE 95; RESP 18; TEMP 36.3; O2SAT 100; BMI 41.0
[2021-06-18 20:50] LABS: UTC Influenza A Antigen Negative (Negative)
[2021-06-18 20:51] LABS: UTC Influenza B Antigen Negative (Negative)
--- NOTE | 2021-06-18 20:58 | HMH.EDUTC ---
[facility] [place] Clinical Impression: Nausea vomiting and diarrhea Disposition: Home, Self-Care Condition on Discharge: Good Instructions: Diarrhea, Nausea and Vomiting-Adult, Ondansetron Additional Instructions: Drink extra fluids with and between meals. If you have difficulty drinking, try very small amounts of water or suck on ice chips. ? Avoid fruit juices, as these do not replace minerals and can actually increase diarrhea. ? Children and adults can use sports drinks to replenish electrolytes. Younger children and infants should use products formulated for children, like oral rehydration solutions. ? Eat food in small amounts and let your stomach recover. ? Get lots of rest. You may feel tired or weak. ? No greasy or fried foods for the next 24-48 hours BRAT diet Bananas Rice Apples and [place] ? Make sure to drink plenty of liquids ? Return if needed ? Straight to ER if any life threatening symptoms ? Zofran as prescribed ? You was given an outpatient order for diarrhea panel, please collect specimen and bring back to outpatient lab then call back to the [facility] or follow up with family doctor for results ? Follow up with family doctor in the next 48-72 hours if no improvement or any worsening of symptoms Prescriptions: Ondansetron [Zofran 4mg ODT] 4 mg PO TIDP PRN #20 tab PRN Reason: Nausea Transmission Status: Pending to [facility] #[id number] Referrals: Avtar Ward APRN [Primary Care Provider] - As needed Time of Disposition: 21:16 Medical Decision Making - Jean Paul Inquiry Pt receiving controlled substance: No Jean Paul was queried for this patient: No Vital Signs: 06/18/21 20:29 06/18/21 20:38 06/18/21 21:02 Temperature 97.4 F L 97.4 F L Temperature Source Oral Pulse Rate 95 H Pulse Rate [Right] 95 H 95 H Respiratory Rate 18 18 18 Blood Pressure 119/77 Blood Pressure [Right Arm] 104/71 L 119/77 Blood Pressure Mean [Right Arm] 82 91 02 Sat by Pulse Oximetry 100 100 - Lab Data Lab results reviewed: Yes: I reviewed the patient's lab results. Lab Results 06/18/21 20:42: Influenza Type A Ag Negative, Influenza Type B Ag Negative Orders (Tests/Meds): ED MEDICATIONS Discontinued Medications Generic Name Dose Route Start Last Admin Trade Name Freq PRN Reason Stop Dose Admin Ondansetron HCl 4 mg 06/18/21 21:00 06/18/21 21:02 Ondansetron 4mg Odt SL 06/18/21 21:01 4 mg ONCE ONE Administration Medical Decision Narrative: Patient states that she feels better after the zofran and able to drink pedialyte and gatoraid and keep it down Spoke with patient due to family concern and recommended lab work in the [facility] or send her back to the ED and she declined States that she didnt want blood draw or go to the ER States that she will go home and drink gatoraid and pedialyte and if she does not feel any better or if she gets worse she will return or follow up with her Family Doctor [facility] - General Stated complaint: WEAKNESS,VOMITING Time Seen by Provider: 06/18/21 20:58 Mode of Arrival: Wheelchair Source of Information: Patient Limitations: No Limitations Description of Symptoms (Recalled from Triage Doc. by RN): pt c/o n/v/d and weakness x2 days. HEENT Symptoms (Recalled from RN notes): No Resp Symptoms (Recalled from RN notes): No Skin Symptoms (Recalled from RN notes): No MS Symptoms (Recalled from RN notes): No Functional Status (Recalled from RN notes): wnl - History of Present Illness Provider Complaint: Patient states that she has been having N/V/D on and off for 2 days State that her last episode of Vomiting or diarrhea was this morning around noon but she has still had some nausea States that she is also having bodyaches and chills and worried that she may have the flu and wanted to get checked for that and get something for her nausea - Related Data Home Medications Medication Instructions Recorded Confirmed Albuterol Sulfate [Albuterol 1 puff IN
[2021-06-18 21:02] VITALS: BP 119/77; PULSE 95; RESP 18; TEMP 36.3
== END 2021-06-18 21:30 | disposition home or self-care (01) ==
PROVIDERS: Emergency Provider Nurse Practitioner; PCP Nurse Practitioner Family
DX: R11.2 Nausea with vomiting, unspecified (principal); R19.7 Diarrhea, unspecified; R53.1 Weakness; R07.9 Chest pain, unspecified; I10 Essential (primary) hypertension; I25.110 Atherosclerotic heart disease of native coronary artery with unstable angina pectoris; I25.2 Old myocardial infarction; E78.5 Hyperlipidemia, unspecified; E66.9 Obesity, unspecified; F19.11 Other psychoactive substance abuse, in remission; F17.210 Nicotine dependence, cigarettes, uncomplicated; Z79.02 Long term (current) use of antithrombotics/antiplatelets; Z79.51 Long term (current) use of inhaled steroids; Z79.899 Other long term (current) drug therapy; Z88.0 Allergy status to penicillin; Z95.5 Presence of coronary angioplasty implant and graft; Z86.73 Personal history of transient ischemic attack (TIA), and cerebral infarction without residual deficits; Z86.718 Personal history of other venous thrombosis and embolism; Z68.41 Body mass index [BMI] 40.0-44.9, adult
CPT/HCPCS: 87804; 99213; G0463

== ENCOUNTER → 2021-06-23 10:07 | Outpatient (CLI) | payer MEDICARE, BC, SELFPAY ==
[2021-06-23 10:13] LABS: Adenovirus F 40/41, stool Not Detected (NotDetected); Astrovirus Not Detected (NotDetected); Campylobacter Not Detected (NotDetected); Clostridium Difficile A/B, PCR Not Detected (NotDetected); Cryptosporidium Not Detected (NotDetected); Cyclospora Cayetanesis Not Detected (NotDetected); Entamoeba histolytica Not Detected (NotDetected); Enteroaggregative E coli Not Detected (NotDetected); Enterotoxigenic E coli Not Detected (NotDetected); Giardia lamblia Not Detected (NotDetected); Norovirus Not Detected (NotDetected); Plesimonas Shigalloides, PCR Not Detected (NotDetected); Rotavirus A Not Detected (NotDetected); Salmonella, PCR Not Detected (NotDetected); Shiga-like toxin E coli Not Detected (NotDetected); Shigella Enterovasive E coli Not Detected (NotDetected); Vibrio Cholerae Not Detected (NotDetected); Vibrio, PCR Not Detected (NotDetected); Yersinia Entercolitica, PCR Not Detected (NotDetected)
[2021-06-23 19:27] LABS: Enteropathogenic E coli Detected (NotDetected); Sapovirus Detected (NotDetected)
== END ==
PROVIDERS: PCP Nurse Practitioner Family; Visit Provider Nurse Practitioner
DX: R19.7 Diarrhea, unspecified (principal); A04.0 Enteropathogenic Escherichia coli infection; A08.11 Acute gastroenteropathy due to Norwalk agent
CPT/HCPCS: 87506